=== PATIENT | male | born 1935 | race Caucasian/White ===

== ENCOUNTER 2016-02-27 19:14 | Inpatient (IN) | payer OTHER ==
[~2016-02-27] VITALS: Ht 182.9 cm; Wt 89.8 kg
[~2016-02-27 19:14] MED LIST: ACETAMINOPHEN500 MG PO; ADULT LOW DOSE81 M1 PO; ADVAIR 250/501 DISK IH; ADVAIR HFA120 INHAL1 IH; ADVAIR HFA120 INHALA IH; ALEVE PM CAPLE1 EACH PO; ALEVE220 M2 PO; ALEVE220 MG PO; AMBIEN5 MG PO; ANTI-ITCH28.4 GM TP; ANTIFUNGAL15 G1; ANTIFUNGAL15 G1 TP; ASPERDRINK81 MG PO; ASPIR-LOW81 MG PO; ASPIRIN EC81 M1 PO; ASPIRIN325 MG PO; ASPIRIN81 M2 PO; ATORVASTATIN CA40 MG PO; ATROVENT 00.5 MG/2.5 IH; AUGMENTIN875 MG PO; AVELOX400 MG PO; Advair 250/50 Diskus IH; Aspirin E.C. PO; BENZONATATE100 MG PO; CARDIZEM CD,CA120 MG PO; CARDIZEM CD,CA180 MG PO; CARDIZEM CD120 MG PO; CARDIZEM CD240 MG PO; CARDIZEM120 MG PO; CARDIZEM30 MG PO; CARDIZEM90 MG PO; CARVEDILOL12.5 MG PO; CARVEDILOL25 MG PO; CEPHALEXIN500 MG PO; CIPRO500 MG PO; COLACE100 MG PO; COMBIVENT RESPIM4 GM IH; COMBIVENT200 INHALA IH; COREG25 M1 PO; COUMADIN1 MG PO; COUMADIN5 MG PO; COUMADIN6 MG PO; CRESTOR40 MG PO; Cardizem CD,LA,Cartia,Tiazac,Dilacor,Taztia PO; Coumadin,Jantoven PO; DIGITEK250 MC2 PO; DIGOX125 MCG PO; DIGOXIN125 MCG PO; DIGOXIN250 MCG PO; DILAUDID2 MG PO; DILTIAZEM 24HR360 M1 PO; DOCUSATE SODIU100 MG PO; DOXAZOSIN MESYLA4 MG PO; DOXYCYCLINE HY100 MG PO; DUONEB 2.5-0.5 M3 ML IH; DURAGESIC50 MCG TD; DuoNeb IH; ECOTRIN325 MG PO; ENALAPRIL MALEAT5 MG PO; ENDOCET 5-3251 EACH PO; ERYTHROMYC1 APPLICAT BOTH EYES; Ecotrin PO; FENTANYL1 EAC1 TD; FEOSOL325 MG PO; FERGON324 MG PO; FERROUS GLUCON324 MG PO; FLEXERIL5 MG PO; FUROSEMIDE20 MG PO; FUROSEMIDE40 MG PO; GABAPENTIN100 MG PO; GABAPENTIN300 MG PO; GLIPIZIDE ER2.5 MG PO; GLIPIZIDE XL5 MG PO; GLUCOPHAGE1000 MG PO; GLUCOPHAGE500 MG PO; GLUCOPHAGE850 MG PO; GLUCOTROL XL2.5 MG PO; GLUCOTROL5 MG PO; GUAIFENESI100 MG/5 M PO; Glucophage PO; HIBICLENS118 ML TP; HYDROCHLOROTH12.5 M3; HYDROCHLOROTHIA25 MG PO; HYDROCODON-ACE1 EAC7 PO; HYDRODIURIL,O12.5 M1 PO; Hydrodiuril,Oretic,E PO; IPRATR-ALBUTEROL3 ML IH; IPRATROPIU0.2 MG/1 M IH; IRON325 MG PO; K-DUR20 MEQ PO; KEFLEX500 MG PO; KENALOG,ARISTOC15 G2 TP; KLOR-CON 1010 ME1 PO; KLOR-CON SPRIN10 MEQ PO; LANOXIN250 MCG PO; LASIX20 MG PO; LASIX40 MG PO; LEVAQUIN500 MG PO; LEVAQUIN750 MG PO; LEVOFLOXACIN750 MG PO; LIPITOR40 MG PO; LIPITOR80 MG PO; LISINOPRIL5 MG PO; LITE COAT ASPI325 M1 PO; LO-DOSE ASPIRIN81 M1 PO; LOPRESSOR25 MG PO; LOPRESSOR50 MG PO; LOW DOSE ASPIRI81 M1 PO; Lanoxin,Digitek PO; Lasix PO; Lopressor PO; MELATONIN5 M1 PO; METFORMIN HCL1000 MG PO; METFORMIN HCL500 MG PO; METOPROLOL TART25 MG PO; METOPROLOL TART50 MG; METOPROLOL TART50 MG PO; MICRO-K10 ME2 PO; MIRALAX17 GM PO; MUCUS RELIEF400 MG PO; NABUMETONE500 MG PO; NAPROXEN375 M1 PO; NAPROXEN375 MG PO; NAPROXEN500 M2 PO; NEURONTIN300 MG PO; NITROFURANTOIN100 MG PO; NITROGLYCERIN0.4 MG SL; NITROSTAT0.3 MG SL; NITROSTAT0.4 MG SL; NORCO 5/3251 TABLET PO; NOVOLOG PE100 UNITS/ SC; OMEPRAZOLE20 MG PO; PAIN RELIEF650 MG PO; PANTOPRAZOLE SO40 MG PO; PERCOCET 5/31 TABLET PO; PLAVIX75 MG PO; POTASSIUM CHLO10 ME3 PO; POTASSIUM CHLO20 ME1 PO; PRADAXA150 MG PO; PRAVASTATIN SOD40 MG PO; PREDNISONE10 MG PO; PREDNISONE20 MG PO; PREDNISONE50 MG PO; PRILOSEC20 MG PO; PRINIVIL20 MG PO; PROAIR HFA8.5 GM IH; PROSCAR5 MG PO; PROTONIX40 MG PO; PROVENTIL HFA6.7 GM IH; PROVENTIL,2.5 MG/3 M IH; PROVENTIL2.5 MG/3 M IH; PYRIDIUM100 MG PO; PYRIDIUM200 MG PO; Percocet 5/325,Endoc PO; SENNA8.6 MG PO; SENOKOT S,PE1 TABLET PO; SILVASORB1.5 OZ TP; SPIRIVA1 INHALATI IH; ST. JOSEPH ASPI81 MG PO; SYMBICORT60 INHALAT IH; TIZANIDINE HCL2 MG PO; TRAMADOL HCL50 MG PO; TRAZODONE HCL50 MG PO; TRIAMCINOLONE A15 GM TP; TYLENOL EXTRA500 MG PO; TYLENOL REGULA325 MG PO; ULTRAM50 MG PO; VASOTEC5 MG PO; VENTOLIN HFA18 GM IH; XARELTO10 MG PO; XARELTO15 MG PO; XARELTO20 MG PO; Xarelto PO; ZANAFLEX2 M1 PO; ZESTRIL,PRINIVI20 MG PO; ZESTRIL20 MG PO; ZESTRIL40 MG PO; ZOFRAN4 MG PO; ZOLPIDEM PO; ZOLPIDEM TARTRAT5 MG PO; Zestril,Prinivil PO; [UNRECOGNIZED DRUG - OTHER] TP; no home
[2016-02-27 19:58] LABS: MCHC 29.5 G/DL (30.0-36.0); MCV 95.1 FL (86-99); MEAN PLAT.VOLUME 10.5 uM^3 (9.0-12.4); RBC DIS.WIDTH-CV 15.7 % (11.8-14.6); RBC DIS.WIDTH-SD 52.3 % (39-53)
[2016-02-27 20:01] LABS: PLATELET COUNT 156 K/uL (156-360); WHITE BLOOD COUNT 5.2 K/uL (4.1-10.2)
[2016-02-27 20:05] LABS: CHLORIDE 103 mEq/L (99-109); POTASSIUM 3.7 mEq/L (3.7-5.4); SODIUM 139 mEq/L (136-147)
[2016-02-27 20:07] LABS: GLUCOSE 258 mg/dL (70-99)
[2016-02-27 20:08] LABS: ANION GAP 8 MEQ/L (2-14)
[2016-02-27 20:10] LABS: GFR ESTIMATE (CALCULATED) > 59 mL/min/
[2016-02-27 20:11] LABS: UREA NITROGEN (BUN) 13 mg/dL (9-23)
[2016-02-27 20:17] LABS: TROP-I INTERPRETATION NEGATIVE; TROPONIN-I < 0.01 ng/mL (0.0-0.30)
[2016-02-27 21:13] LABS: ADD MIUA? YES; BILIRUBIN NEGATIVE; BLOOD NEGATIVE; COLOR YELLOW ((YELLOW)); GLUCOSE (STRIP) 500; KETONES NEGATIVE; LEUKOCYTES NEGATIVE; NITRITE NEGATIVE; PROTEIN (STRIP) 100; SPECIFIC GRAVITY 1.024 (1.000-1.030)
[2016-02-27] MEDS ORDERED: FEOSOL325 MG PO (21:17)
[2016-02-27] MEDS ORDERED: XARELTO15 MG PO (21:18)
[2016-02-27] MEDS ORDERED: ALEVE220 M2 PO (21:19)
[2016-02-27] MEDS ORDERED: TESSALON PERLE100 MG PO (21:20)
[2016-02-27] MEDS ORDERED: GLUCOPHAGE500 MG PO (21:21)
[2016-02-27] MEDS ORDERED: LASIX40 MG PO (21:22)
[2016-02-27] MEDS ORDERED: POTASSIUM CHLO10 ME3 PO (21:22)
[2016-02-27] MEDS ORDERED: SPIRIVA1 INHALATI IH (21:22)
[2016-02-27] MEDS ORDERED: SYMBICORT60 INHALAT IH (21:23)
[2016-02-27 22:00] LABS: BACTERIA NONE SEEN; CASTS NONE SEEN /LPF; CRYSTALS NONE SEEN; EPITHELIAL CELLS RARE; MUCUS NONE SEEN; RED BLOOD CELLS RARE /HPF (0-5); UCUL ADDED? NO; WHITE BLOOD CELLS RARE /HPF (0-5)
[2016-02-28 03:30] LABS: TROP-I INTERPRETATION NEGATIVE; TROPONIN-I < 0.01 ng/mL (0.0-0.30)
[2016-02-28 09:08] LABS: HEMATOCRIT 37.1 % (38.0-50.0); MCHC 29.6 G/DL (30.0-36.0); MCV 94.4 FL (86-99); MEAN PLAT.VOLUME 11.3 uM^3 (9.0-12.4); PLATELET COUNT 128 K/uL (156-360); RBC DIS.WIDTH-CV 15.4 % (11.8-14.6); RBC DIS.WIDTH-SD 51.5 % (39-53); RED BLOOD COUNT 3.93 M/uL (4.00-5.50); WHITE BLOOD COUNT 3.3 K/uL (4.1-10.2)
[2016-02-28 09:18] LABS: CHLORIDE 101 mEq/L (99-109)
[2016-02-28 09:19] LABS: POTASSIUM 3.5 mEq/L (3.7-5.4); SODIUM 140 mEq/L (136-147)
[2016-02-28 09:20] LABS: GLUCOSE 321 mg/dL (70-99)
[2016-02-28 09:22] LABS: ANION GAP 10 MEQ/L (2-14)
[2016-02-28 09:24] LABS: GFR ESTIMATE (CALCULATED) > 59 mL/min/
[2016-02-28 09:25] LABS: UREA NITROGEN (BUN) 12 mg/dL (9-23)
[2016-02-28 09:28] LABS: TROP-I INTERPRETATION NEGATIVE; TROPONIN-I < 0.01 ng/mL (0.0-0.30)
[2016-02-28 11:30] VITALS: BP 140/97
[2016-02-28 12:01] LABS: POINT-OF-CARE METER ID UU13113748
[2016-02-28 12:40] LABS: METH RESISTANT S AUREUS PCR POSITIVE (NEGATIVE)
[2016-02-28 12:41] LABS: PROBE CHECK PASS
[2016-02-28 14:00] VITALS: BP 108/66
[2016-02-28 16:00] VITALS: BP 101/52
[2016-02-28 17:18] LABS: POINT-OF-CARE METER ID UU13113748
[2016-02-28 20:00] VITALS: BP 102/49
[2016-02-28 22:44] LABS: POINT-OF-CARE METER ID UU13113748; POINT-OF-CARE USER ID PHATLC
[2016-02-29] VITALS (10 sets, daily range): BP systolic 112–139; BP diastolic 53–97
[2016-02-29 06:57] LABS: ANION GAP 8 MEQ/L (2-14); CHLORIDE 101 MEQ/L (99-109); GFR ESTIMATE (CALCULATED) > 59 mL/min/; GLUCOSE 284 mg/dL (70-99); POTASSIUM 3.8 MEQ/L (3.7-5.4); SAMPLE HEMOLYSIS CHECK 0; SAMPLE ICTERIC CHECK 0; SAMPLE LIPEMIA CHECK 0; SODIUM 139 MEQ/L (136-147); UREA NITROGEN (BUN) 20 mg/dL (9-23)
[2016-02-29 07:05] LABS: MCH 28.4 PG (29.0-34.0); RBC DIS.WIDTH-CV 17.4 % (11.8-14.6); RED BLOOD COUNT 3.73 M/uL (4.00-5.50)
[2016-02-29 07:35] LABS: POINT-OF-CARE METER ID UU14162636
[2016-02-29 07:49] LABS: MCV 94.3 FL (86-99); RBC DIS.WIDTH-SD 53.8 % (39-53)
[2016-02-29 08:03] LABS: MEAN PLAT.VOLUME 11.5 uM^3 (9.0-12.4); PLATELET COUNT 129 K/uL (156-360)
[2016-02-29 12:13] LABS: POINT-OF-CARE METER ID UU14162636; POINT-OF-CARE USER ID 606021424
[2016-02-29 17:06] LABS: POINT-OF-CARE METER ID UU14162636
[2016-02-29 21:22] LABS: POINT-OF-CARE METER ID UU14174225
[2016-03-01 04:00] VITALS: BP 165/85
[2016-03-01 06:59] LABS: HEMATOCRIT 36.2 % (38.0-50.0); MCH 28.2 PG (29.0-34.0); MCHC 29.8 G/DL (30.0-36.0); MCV 94.5 FL (86-99); MEAN PLAT.VOLUME 11.1 uM^3 (9.0-12.4); PLATELET COUNT 120 K/uL (156-360); RBC DIS.WIDTH-CV 15.8 % (11.8-14.6); RBC DIS.WIDTH-SD 54.5 % (39-53); RED BLOOD COUNT 3.83 M/uL (4.00-5.50); WHITE BLOOD COUNT 10.5 K/uL (4.1-10.2)
[2016-03-01 07:29] LABS: ANION GAP 10 MEQ/L (2-14); CHLORIDE 94 MEQ/L (99-109); GFR ESTIMATE (CALCULATED) > 59 mL/min/; SAMPLE HEMOLYSIS CHECK 0; SAMPLE ICTERIC CHECK 0; SAMPLE LIPEMIA CHECK 0; SODIUM 134 MEQ/L (136-147); UREA NITROGEN (BUN) 29 mg/dL (9-23)
[2016-03-01 07:40] VITALS: BP 159/94
[2016-03-01 07:40] LABS: GLUCOSE 418 mg/dL (70-99)
[2016-03-01 10:51] VITALS: BP 183/96
[2016-03-01 15:08] VITALS: BP 145/80
[2016-03-01 19:46] VITALS: BP 151/93
[2016-03-01 21:24] LABS: POINT-OF-CARE METER ID UU14174225
[2016-03-02 00:38] VITALS: BP 126/81
[2016-03-02 04:00] VITALS: BP 140/93
[2016-03-02 08:14] VITALS: BP 152/88
[2016-03-02 08:20] LABS: POINT-OF-CARE METER ID UU14174225
[2016-03-02 12:04] VITALS: BP 150/86
[2016-03-02 12:14] LABS: POINT-OF-CARE METER ID UU14174225
[2016-03-02] MEDS ORDERED: PREDNISONE10 MG PO (14:54)
[2016-03-02] MEDS ORDERED: LEVOFLOXACIN750 MG PO (14:56)
[2016-03-02] MEDS ORDERED: PRAVASTATIN SOD40 MG PO (14:56)
[2016-03-02] MEDS ORDERED: FUROSEMIDE40 MG PO (14:56)
[2016-03-02] MEDS ORDERED: JANUVIA25 M1 PO (14:56)
== END 2016-03-02 15:32 | disposition home or self-care (01) | DRG 189 ==
LOC: EME → EDBD 19:14 → EME 19:14 → EDOF 22:40 → 5SOUTH 22:40 → 4WEST 22:40 → 5SOUTH 02-29 20:46
PROVIDERS: Emergency Medicine; Hospitalist; Internal Medicine; Physician Assistant Medical
DX: J96.21 Acute and chronic respiratory failure with hypoxia (principal); J96.22 Acute and chronic respiratory failure with hypercapnia; I50.23 Acute on chronic systolic (congestive) heart failure; J44.1 Chronic obstructive pulmonary disease with (acute) exacerbation; I47.2 Ventricular tachycardia; E87.6 Hypokalemia; T50.1X5A Adverse effect of loop [high-ceiling] diuretics, initial encounter; Z91.19 Patient's noncompliance with other medical treatment and regimen; Z99.81 Dependence on supplemental oxygen; I48.2 Chronic atrial fibrillation; I25.10 Atherosclerotic heart disease of native coronary artery without angina pectoris; I45.10 Unspecified right bundle-branch block; D64.9 Anemia, unspecified; D69.6 Thrombocytopenia, unspecified; I27.2 Other secondary pulmonary hypertension; I25.5 Ischemic cardiomyopathy; E11.9 Type 2 diabetes mellitus without complications; F43.22 Adjustment disorder with anxiety; Z59.0 Homelessness; I73.9 Peripheral vascular disease, unspecified; F17.210 Nicotine dependence, cigarettes, uncomplicated; E78.5 Hyperlipidemia, unspecified; I25.2 Old myocardial infarction; Z86.73 Personal history of transient ischemic attack (TIA), and cerebral infarction without residual deficits; Z79.01 Long term (current) use of anticoagulants
CPT/HCPCS: 71010; 80048; 81003; 82803; 82948; 83605; 83880; 84484; 85027; 87040; 87086; 87641; 93005; 94640; 94640 76; 94799; 99202; 99281; 99285; J0360; J1100; J1815; J1940; J1956; J2920; J7512; J7644

== ENCOUNTER 2016-04-03 11:29 | Emergency (ER) | payer OTHER ==
[~2016-04-03] VITALS: Ht 195.6 cm; Wt 89.1 kg
[~2016-04-03 11:29] MED LIST changes: +JANUVIA25 M1 PO; +TESSALON PERLE100 MG PO
[2016-04-03] MEDS ORDERED: PANTOPRAZOLE SO40 MG PO (11:46)
[2016-04-03] MEDS ORDERED: FERROUS GLUCON324 MG PO (11:46)
[2016-04-03] MEDS ORDERED: FUROSEMIDE40 MG PO (11:46)
[2016-04-03] MEDS ORDERED: POTASSIUM CHLO10 ME4 PO (11:47)
[2016-04-03] MEDS ORDERED: ENALAPRIL MALEAT5 MG PO (11:47)
[2016-04-03] MEDS ORDERED: CARVEDILOL25 MG PO (11:47)
[2016-04-03] MEDS ORDERED: ADVIL200 MG PO (13:16)
[2016-04-03 14:36] LABS: HEMATOCRIT 37.1 % (38.0-50.0); MCH 27.3 PG (29.0-34.0); MCHC 29.9 G/DL (30.0-36.0); MCV 91.4 FL (86-99); MEAN PLAT.VOLUME 10.1 uM^3 (9.0-12.4); PLATELET COUNT 172 K/uL (156-360); RBC DIS.WIDTH-CV 16.5 % (11.8-14.6); RBC DIS.WIDTH-SD 53.5 % (39-53); RED BLOOD COUNT 4.06 M/uL (4.00-5.50); WHITE BLOOD COUNT 9.4 K/uL (4.1-10.2)
[2016-04-03 14:40] LABS: EOSINOPHIL (%) 2.7 % (0-5); EOSINOPHIL COUNT 0.3 K/uL (0-0.3); IMMATURE GRANULOCYTE (%) 0.3 % (0.0-0.7); IMMATURE GRANULOCYTE COUNT 0.3 K/uL; LYMPHOCYTE COUNT 1.2 K/uL (1.0-2.8); MONOCYTE (%) 6.9 % (3-12); MONOCYTE COUNT 0.7 K/uL (0-0.8); NEUTROPHIL (%) 76.7 % (45-76); NEUTROPHIL COUNT 7.2 K/uL (1.8-6.4)
[2016-04-03 14:47] LABS: CHLORIDE 107 mEq/L (99-109); POTASSIUM 3.7 mEq/L (3.7-5.4); SODIUM 143 mEq/L (136-147)
[2016-04-03 14:49] LABS: ADD MIUA? NO; BILIRUBIN NEGATIVE; BLOOD NEGATIVE; COLOR YELLOW ((YELLOW)); GLUCOSE (STRIP) NEGATIVE; KETONES NEGATIVE; LEUKOCYTES NEGATIVE; NITRITE NEGATIVE; PROTEIN (STRIP) 30; SPECIFIC GRAVITY 1.015 (1.000-1.030); UCUL ADDED? NO
[2016-04-03 14:49] LABS: GLUCOSE 119 mg/dL (70-99)
[2016-04-03 14:51] LABS: ANION GAP 8 MEQ/L (2-14); TOTAL BILIRUBIN 0.6 mg/dL (0.0-1.0)
[2016-04-03 14:53] LABS: ALKALINE PHOSPHATASE 69 IU/L (3-129); GFR ESTIMATE (CALCULATED) > 59 mL/min/
[2016-04-03 14:54] LABS: UREA NITROGEN (BUN) 12 mg/dL (9-23)
[2016-04-03 14:56] LABS: CREATINE KINASE 32 IU/L (1-294); TOTAL CK 32 IU/L (1-294)
[2016-04-03 15:02] LABS: TROP-I INTERPRETATION NEGATIVE; TROPONIN-I < 0.01 ng/mL (0.0-0.30)
[2016-04-03 15:03] LABS: CK-MB 1.5 ng/mL (0.0-4.9)
[2016-04-03 19:55] VITALS: BP 157/113
== END 2016-04-03 19:25 | disposition home or self-care (01) ==
LOC: EME 11:29
PROVIDERS: Emergency Medicine
DX: R53.1 Weakness (principal); R29.6 Repeated falls; I10 Essential (primary) hypertension; E11.9 Type 2 diabetes mellitus without complications; E78.5 Hyperlipidemia, unspecified; Z86.79 Personal history of other diseases of the circulatory system; Z86.73 Personal history of transient ischemic attack (TIA), and cerebral infarction without residual deficits; Z95.5 Presence of coronary angioplasty implant and graft; Z86.711 Personal history of pulmonary embolism; Z96.652 Presence of left artificial knee joint; Z88.2 Allergy status to sulfonamides; Z72.0 Tobacco use
CPT/HCPCS: 70450; 71010; 73521; 80053; 81003; 82550; 82553; 83605; 84484; 85025; 93005; 99281; 99285

== ENCOUNTER 2016-04-09 18:21 | Inpatient (IN) | payer OTHER ==
[~2016-04-09] VITALS: Ht 198.1 cm; Wt 89.0 kg
[~2016-04-09 18:21] MED LIST changes: +ADVIL200 MG PO; +POTASSIUM CHLO10 ME4 PO
[2016-04-09 18:58] LABS: HEMATOCRIT 38.7 % (38.0-50.0); MCH 26.2 PG (29.0-34.0); MCHC 28.7 G/DL (30.0-36.0); MCV 91.3 FL (86-99); MEAN PLAT.VOLUME 10.9 uM^3 (9.0-12.4); PLATELET COUNT 177 K/uL (156-360); RBC DIS.WIDTH-CV 16.8 % (11.8-14.6); RBC DIS.WIDTH-SD 53.9 % (39-53); RED BLOOD COUNT 4.24 M/uL (4.00-5.50); WHITE BLOOD COUNT 8.9 K/uL (4.1-10.2)
[2016-04-09 19:01] LABS: EOSINOPHIL (%) 1.8 % (0-5); EOSINOPHIL COUNT 0.2 K/uL (0-0.3); IMMATURE GRANULOCYTE (%) 0.3 % (0.0-0.7); IMMATURE GRANULOCYTE COUNT 0.3 K/uL; LYMPHOCYTE COUNT 1.1 K/uL (1.0-2.8); MONOCYTE (%) 6.1 % (3-12); MONOCYTE COUNT 0.5 K/uL (0-0.8); NEUTROPHIL (%) 78.5 % (45-76)
[2016-04-09 19:06] LABS: CHLORIDE 106 mEq/L (99-109); POTASSIUM 3.9 mEq/L (3.7-5.4); SODIUM 141 mEq/L (136-147)
[2016-04-09 19:08] LABS: GLUCOSE 158 mg/dL (70-99)
[2016-04-09 19:09] LABS: ANION GAP 8 MEQ/L (2-14)
[2016-04-09 19:12] LABS: GFR ESTIMATE (CALCULATED) > 59 mL/min/
[2016-04-09 19:13] LABS: UREA NITROGEN (BUN) 16 mg/dL (9-23)
[2016-04-09 19:18] LABS: TROP-I INTERPRETATION INDETERMINATE; TROPONIN-I 0.58 ng/mL (0.0-0.30)
[2016-04-09] MEDS ORDERED: NITROSTAT0.4 MG SL (19:55)
[2016-04-09] MEDS ORDERED: K-TAB10 MEQ PO (19:57)
[2016-04-09 20:07] LABS: ADD MIUA? YES; BILIRUBIN NEGATIVE; BLOOD NEGATIVE; COLOR YELLOW ((YELLOW)); GLUCOSE (STRIP) NEGATIVE; KETONES NEGATIVE; LEUKOCYTES NEGATIVE; NITRITE NEGATIVE; PROTEIN (STRIP) >=500
[2016-04-09 20:13] LABS: BACTERIA NONE SEEN /HPF; EPITHELIAL CELLS NONE SEEN /HPF; HYALINE CASTS 0-5 /LPF; MUCUS TRACE /LPF; RED BLOOD CELLS 0-5 /HPF (0-5); UCUL ADDED? NO; UNCLASSIFIED CASTS 0-5 /LPF; WHITE BLOOD CELLS 0-5 /HPF (0-5)
[2016-04-09 22:56] VITALS: BP 160/104
[2016-04-09 23:12] VITALS: BP 147/103
[2016-04-09 23:42] VITALS: BP 150/100
[2016-04-10] VITALS (13 sets, daily range): BP systolic 100–153; BP diastolic 59–98
[2016-04-10] MEDS ORDERED: PROVENTIL HFA6.7 GM IH (01:31)
[2016-04-10 02:45] LABS: TROP-I INTERPRETATION INDETERMINATE; TROPONIN-I 0.45 ng/mL (0.0-0.30)
[2016-04-10 07:02] LABS: HEMATOCRIT 33.9 % (38.0-50.0); MCH 27.1 PG (29.0-34.0); MCHC 30.1 G/DL (30.0-36.0); MCV 90.2 FL (86-99); MEAN PLAT.VOLUME 11.4 uM^3 (9.0-12.4); PLATELET COUNT 162 K/uL (156-360); RBC DIS.WIDTH-CV 16.8 % (11.8-14.6); RBC DIS.WIDTH-SD 54.9 % (39-53); RED BLOOD COUNT 3.76 M/uL (4.00-5.50); WHITE BLOOD COUNT 7.4 K/uL (4.1-10.2)
[2016-04-10 07:33] LABS: TROP-I INTERPRETATION INDETERMINATE; TROPONIN-I 0.37 ng/mL (0.0-0.30)
[2016-04-10 07:35] LABS: ANION GAP 8 MEQ/L (2-14); CHLORIDE 99 MEQ/L (99-109); GFR ESTIMATE (CALCULATED) > 59 mL/min/; GLUCOSE 222 mg/dL (70-99); POTASSIUM 3.3 MEQ/L (3.7-5.4); SAMPLE HEMOLYSIS CHECK 0; SAMPLE ICTERIC CHECK 0; SAMPLE LIPEMIA CHECK 0; SODIUM 136 MEQ/L (136-147); UREA NITROGEN (BUN) 12 mg/dL (9-23)
[2016-04-10 16:10] LABS: POINT-OF-CARE METER ID UU13113781
[2016-04-11 04:00] VITALS: BP 125/74
[2016-04-11 07:24] LABS: ANION GAP 7 MEQ/L (2-14); CHLORIDE 101 MEQ/L (99-109); GFR ESTIMATE (CALCULATED) > 59 mL/min/; GLUCOSE 201 mg/dL (70-99); POTASSIUM 3.5 MEQ/L (3.7-5.4); SAMPLE HEMOLYSIS CHECK 0; SAMPLE ICTERIC CHECK 0; SAMPLE LIPEMIA CHECK 0; SODIUM 141 MEQ/L (136-147)
[2016-04-11 07:25] LABS: UREA NITROGEN (BUN) 29 mg/dL (9-23)
[2016-04-11 07:59] LABS: POINT-OF-CARE METER ID UU13113698; POINT-OF-CARE USER ID ENVKC36
[2016-04-11 08:30] VITALS: BP 132/73
[2016-04-11 11:19] LABS: POINT-OF-CARE METER ID UU13113698; POINT-OF-CARE USER ID ENVKC36
[2016-04-11 12:35] VITALS: BP 106/66
[2016-04-11 16:00] VITALS: BP 100/69
[2016-04-11 16:42] LABS: POINT-OF-CARE USER ID ENVKC36
[2016-04-11 20:50] VITALS: BP 123/69
[2016-04-11 20:50] LABS: POINT-OF-CARE METER ID UU14174216
[2016-04-12] VITALS (7 sets, daily range): BP systolic 83–137; BP diastolic 53–77
[2016-04-12 07:52] LABS: POINT-OF-CARE METER ID UU13113698
[2016-04-12 10:27] LABS: ANION GAP 3 MEQ/L (2-14); CHLORIDE 101 MEQ/L (99-109); GFR ESTIMATE (CALCULATED) > 59 mL/min/; GLUCOSE 219 mg/dL (70-99); POTASSIUM 4.2 MEQ/L (3.7-5.4); SAMPLE HEMOLYSIS CHECK 0; SAMPLE ICTERIC CHECK 0; SAMPLE LIPEMIA CHECK 0; SODIUM 140 MEQ/L (136-147); UREA NITROGEN (BUN) 27 mg/dL (9-23)
[2016-04-12 12:18] LABS: POINT-OF-CARE METER ID UU14174216
[2016-04-12 16:16] LABS: POINT-OF-CARE METER ID UU14174216
[2016-04-12 20:45] LABS: POINT-OF-CARE METER ID UU14174216
[2016-04-13 03:43] VITALS: BP 141/80
[2016-04-13 06:55] VITALS: BP 145/75
[2016-04-13 07:32] LABS: ANION GAP 4 MEQ/L (2-14); CHLORIDE 99 MEQ/L (99-109); GFR ESTIMATE (CALCULATED) > 59 mL/min/; GLUCOSE 171 mg/dL (70-99); POTASSIUM 4.4 MEQ/L (3.7-5.4); SAMPLE HEMOLYSIS CHECK 0; SAMPLE ICTERIC CHECK 0; SAMPLE LIPEMIA CHECK 0; SODIUM 137 MEQ/L (136-147); UREA NITROGEN (BUN) 24 mg/dL (9-23)
[2016-04-13 07:55] LABS: POINT-OF-CARE METER ID UU13113698
[2016-04-13] MEDS ORDERED: XARELTO20 MG PO ×2 (10:11→13:05)
[2016-04-13] MEDS ORDERED: ATORVASTATIN CA40 MG PO (13:05)
[2016-04-13] MEDS ORDERED: ENALAPRIL MALEAT5 MG PO (13:05)
[2016-04-13] MEDS ORDERED: FERROUS GLUCON324 MG PO (13:05)
[2016-04-13] MEDS ORDERED: PROVENTIL HFA6.7 GM IH (13:05)
[2016-04-13] MEDS ORDERED: CARDIZEM CD120 MG PO (13:05)
[2016-04-13] MEDS ORDERED: K-TAB10 MEQ PO (13:05)
[2016-04-13] MEDS ORDERED: PANTOPRAZOLE SO40 MG PO (13:05)
[2016-04-13] MEDS ORDERED: NITROSTAT0.4 MG SL (13:05)
[2016-04-13] MEDS ORDERED: FUROSEMIDE20 MG PO (13:05)
[2016-04-13] MEDS ORDERED: ST. JOSEPH ASPI81 MG PO (13:05)
[2016-04-13] MEDS ORDERED: GLUCOPHAGE500 MG PO (13:05)
[2016-04-13] MEDS ORDERED: ADVAIR HFA120 INHALA IH (13:05)
[2016-04-13] MEDS ORDERED: CARVEDILOL12.5 MG PO (13:05)
[2016-04-13 14:21] LABS: Estimated Average Glucose 174 mg/dL (70-123)
[2016-04-13 16:39] LABS: HEMOGLOBIN A1c (GLYCOHEMOGLOB) 7.7 % HGB (Below 5.7)
== END 2016-04-13 16:25 | disposition home or self-care (01) | DRG 264 ==
LOC: EME 18:21 → EDOF 21:42 → 4EAST 21:42
PROVIDERS: Emergency Medicine; Hospitalist; Internal Medicine; Internal Medicine Cardiovascular Disease
PROC: 0HBKXZZ Excision of Right Lower Leg Skin, External Approach (ICD-10-PCS; principal; 2016-04-10)
PROC: 0HBLXZZ Excision of Left Lower Leg Skin, External Approach (ICD-10-PCS; principal; 2016-04-10)
DX: I50.23 Acute on chronic systolic (congestive) heart failure (principal); J44.0 Chronic obstructive pulmonary disease with (acute) lower respiratory infection; J18.9 Pneumonia, unspecified organism; J44.1 Chronic obstructive pulmonary disease with (acute) exacerbation; I48.1 Persistent atrial fibrillation; L97.821 Non-pressure chronic ulcer of other part of left lower leg limited to breakdown of skin; L97.819 Non-pressure chronic ulcer of other part of right lower leg with unspecified severity; I47.2 Ventricular tachycardia; I73.9 Peripheral vascular disease, unspecified; I87.2 Venous insufficiency (chronic) (peripheral); I10 Essential (primary) hypertension; E87.6 Hypokalemia; I25.5 Ischemic cardiomyopathy; I25.10 Atherosclerotic heart disease of native coronary artery without angina pectoris; E11.42 Type 2 diabetes mellitus with diabetic polyneuropathy; E11.65 Type 2 diabetes mellitus with hyperglycemia; D64.9 Anemia, unspecified; D69.6 Thrombocytopenia, unspecified; E78.5 Hyperlipidemia, unspecified; E11.51 Type 2 diabetes mellitus with diabetic peripheral angiopathy without gangrene; I25.2 Old myocardial infarction; K21.9 Gastro-esophageal reflux disease without esophagitis; F32.9 Major depressive disorder, single episode, unspecified; F43.22 Adjustment disorder with anxiety; M16.11 Unilateral primary osteoarthritis, right hip; F17.210 Nicotine dependence, cigarettes, uncomplicated; Z59.0 Homelessness; Z86.73 Personal history of transient ischemic attack (TIA), and cerebral infarction without residual deficits; Z79.01 Long term (current) use of anticoagulants; Z96.642 Presence of left artificial hip joint; Z91.19 Patient's noncompliance with other medical treatment and regimen; Z95.1 Presence of aortocoronary bypass graft; Z95.5 Presence of coronary angioplasty implant and graft
CPT/HCPCS: 71020; 80048; 81003; 82948; 83036; 83605; 83880; 84443; 84484; 85025; 85027; 87040; 87086; 93005; 93925; 94640; 94640 76; 94799; 99202; 99281; 99285; J0456; J0696; J1815; J1940; J1956; J2930; J7030; J7050

== ENCOUNTER 2016-04-23 18:15 | Emergency (ER) | payer OTHER ==
[~2016-04-23] VITALS: Ht 199.4 cm; Wt 89.2 kg
[~2016-04-23 18:15] MED LIST changes: +K-TAB10 MEQ PO
[2016-04-23 19:25] LABS: HEMATOCRIT 37.6 % (38.0-50.0); MCH 26.9 PG (29.0-34.0); MCHC 29.5 G/DL (30.0-36.0); MCV 91.3 FL (86-99); MEAN PLAT.VOLUME 10.5 uM^3 (9.0-12.4); PLATELET COUNT 186 K/uL (156-360); RBC DIS.WIDTH-CV 18.4 % (11.8-14.6); RBC DIS.WIDTH-SD 58.2 % (39-53); RED BLOOD COUNT 4.12 M/uL (4.00-5.50); WHITE BLOOD COUNT 9.1 K/uL (4.1-10.2)
[2016-04-23 19:28] LABS: EOSINOPHIL (%) 3.5 % (0-5); EOSINOPHIL COUNT 0.3 K/uL (0-0.3); IMMATURE GRANULOCYTE (%) 0.2 % (0.0-0.7); IMMATURE GRANULOCYTE COUNT 0.2 K/uL; LYMPHOCYTE COUNT 1.8 K/uL (1.0-2.8); MONOCYTE (%) 7.3 % (3-12); MONOCYTE COUNT 0.7 K/uL (0-0.8); NEUTROPHIL (%) 69.4 % (45-76); NEUTROPHIL COUNT 6.3 K/uL (1.8-6.4)
[2016-04-23 19:39] LABS: CHLORIDE 104 mEq/L (99-109); POTASSIUM 3.6 mEq/L (3.7-5.4); SODIUM 141 mEq/L (136-147)
[2016-04-23 19:41] LABS: GLUCOSE 110 mg/dL (70-99)
[2016-04-23 19:43] LABS: ANION GAP 9 MEQ/L (2-14)
[2016-04-23 19:45] LABS: GFR ESTIMATE (CALCULATED) > 59 mL/min/
[2016-04-23 19:46] LABS: UREA NITROGEN (BUN) 17 mg/dL (9-23)
[2016-04-23] MEDS ORDERED: PREDNISONE50 MG PO (20:51)
[2016-04-23] MEDS ORDERED: LEVAQUIN500 MG PO (20:51)
[2016-04-23 21:39] VITALS: BP 143/90
== END 2016-04-23 21:42 | disposition home or self-care (01) ==
LOC: EME 18:15
PROVIDERS: Emergency Medicine
DX: R21 Rash and other nonspecific skin eruption (principal); J40 Bronchitis, not specified as acute or chronic; J44.9 Chronic obstructive pulmonary disease, unspecified; L29.9 Pruritus, unspecified; R20.8 Other disturbances of skin sensation; E11.9 Type 2 diabetes mellitus without complications; Z86.711 Personal history of pulmonary embolism; Z95.5 Presence of coronary angioplasty implant and graft; F17.200 Nicotine dependence, unspecified, uncomplicated
CPT/HCPCS: 71010; 80048; 85025; 94640; 99281; 99285; J1200; J2930

== ENCOUNTER 2016-04-29 22:25 | Inpatient (IN) | payer OTHER ==
[~2016-04-29] VITALS: Ht 188 cm; Wt 95.0 kg
[2016-04-29 22:58] LABS: MCH 26.6 PG (29.0-34.0); MCHC 29.1 G/DL (30.0-36.0); MCV 91.1 FL (86-99); RBC DIS.WIDTH-CV 17.6 % (11.8-14.6); RBC DIS.WIDTH-SD 57.2 % (39-53); RED BLOOD COUNT 3.84 M/uL (4.00-5.50)
[2016-04-29 22:59] LABS: WHITE BLOOD COUNT 6.1 K/uL (4.1-10.2)
[2016-04-29 23:05] LABS: CHLORIDE 104 mEq/L (99-109); POTASSIUM 3.6 mEq/L (3.7-5.4); SODIUM 139 mEq/L (136-147)
[2016-04-29 23:07] LABS: INTER. NORMALIZED RATIO 1.7; PROTHROMBIN TIME 17.4 (9.2-11.2); PTT 36.4 (25-32)
[2016-04-29 23:08] LABS: ANION GAP 10 MEQ/L (2-14)
[2016-04-29 23:10] LABS: GFR ESTIMATE (CALCULATED) 57 mL/min/
[2016-04-29 23:11] LABS: UREA NITROGEN (BUN) 17 mg/dL (9-23)
[2016-04-29 23:19] LABS: TROP-I INTERPRETATION NEGATIVE; TROPONIN-I 0.02 ng/mL (0.0-0.30)
[2016-04-29 23:29] LABS: GLUCOSE 468 mg/dL (70-99)
[2016-04-29 23:48] LABS: INFLUENZA A VIRAL ANTIGEN NEGATIVE; INFLUENZA B VIRAL ANTIGEN NEGATIVE
[2016-04-30] MEDS ORDERED: FUROSEMIDE40 MG PO (00:17)
[2016-04-30] MEDS ORDERED: TYLENOL REGULA325 MG PO (00:19)
[2016-04-30] MEDS ORDERED: DUONEB 2.5-0.5 M3 ML AEROSOL (00:19)
[2016-04-30] MEDS ORDERED: PREDNISONE50 MG PO (00:21)
[2016-04-30 00:43] LABS: PLATELET COUNT UNABLE TO REPORT K/uL (156-360)
[2016-04-30 00:50] LABS: POINT-OF-CARE METER ID UU13113702; POINT-OF-CARE USER ID HMLKAV
[2016-04-30 01:49] LABS: CHLORIDE 105 mEq/L (99-109); POTASSIUM 3.5 mEq/L (3.7-5.4); SODIUM 138 mEq/L (136-147)
[2016-04-30 01:53] LABS: ANION GAP 7 MEQ/L (2-14)
[2016-04-30 01:54] LABS: TOTAL BILIRUBIN 0.6 mg/dL (0.0-1.0)
[2016-04-30 01:55] LABS: ALKALINE PHOSPHATASE 71 IU/L (3-129); GFR ESTIMATE (CALCULATED) > 59 mL/min/
[2016-04-30 01:56] LABS: UREA NITROGEN (BUN) 15 mg/dL (9-23)
[2016-04-30 02:01] LABS: GLUCOSE 474 mg/dL (70-99)
[2016-04-30 07:09] LABS: POINT-OF-CARE METER ID UU14100415
[2016-04-30 11:19] LABS: POINT-OF-CARE METER ID UU14100415
[2016-04-30 16:32] VITALS: BP 104/68
== END 2016-04-30 17:09 | DRG 871 ==
LOC: EME 22:25 → EDOF 04-30 00:49 → 5EAST 04-30 00:49
PROVIDERS: Emergency Medicine; Hospitalist; Internal Medicine
DX: A41.9 Sepsis, unspecified organism (principal); J18.9 Pneumonia, unspecified organism; J44.1 Chronic obstructive pulmonary disease with (acute) exacerbation; I50.22 Chronic systolic (congestive) heart failure; E11.65 Type 2 diabetes mellitus with hyperglycemia; I83.225 Varicose veins of left lower extremity with both ulcer other part of foot and inflammation; L97.529 Non-pressure chronic ulcer of other part of left foot with unspecified severity; I48.91 Unspecified atrial fibrillation; I25.10 Atherosclerotic heart disease of native coronary artery without angina pectoris; Y95 Nosocomial condition; I25.2 Old myocardial infarction; Z95.1 Presence of aortocoronary bypass graft; I73.9 Peripheral vascular disease, unspecified; F41.9 Anxiety disorder, unspecified; Z86.711 Personal history of pulmonary embolism; E66.9 Obesity, unspecified; Z95.5 Presence of coronary angioplasty implant and graft; D64.9 Anemia, unspecified; E78.5 Hyperlipidemia, unspecified
CPT/HCPCS: 71010; 80048; 80053; 82948; 83605; 83880; 84484; 85027; 85049; 85610; 85730; 87040; 87070; 87205; 87449; 87502; 93005; 94640; 94640 76; 94799; 99202; C9113; J0456; J0692; J0696; J1815; J2930; J3370; J7030; J7050

== ENCOUNTER 2016-04-30 17:09 | Inpatient (IN) | payer OTHER ==
[~2016-04-30] VITALS: Ht 188 cm; Wt 95.0 kg
[~2016-04-30 17:09] MED LIST changes: +DUONEB 2.5-0.5 M3 ML AEROSOL
[2016-04-30 23:33] VITALS: BP 137/85
[2016-05-01 03:30] LABS: POINT-OF-CARE METER ID UU13113725
[2016-05-01 06:13] LABS: POINT-OF-CARE METER ID UU13113725
[2016-05-01 08:00] VITALS: BP 148/100
[2016-05-01 11:26] LABS: POINT-OF-CARE METER ID UU13113725
[2016-05-01 15:41] VITALS: BP 141/96
[2016-05-01 23:06] VITALS: BP 151/92
[2016-05-02 09:44] LABS: Estimated Average Glucose 194 mg/dL (70-123); HEMOGLOBIN A1c (GLYCOHEMOGLOB) 8.4 % HGB (Below 5.7)
[2016-05-02 11:50] VITALS: BP 124/94
[2016-05-02 23:35] VITALS: BP 167/83
[2016-05-03 08:10] VITALS: BP 160/72
[2016-05-03] MEDS ORDERED: PREDNISONE20 MG PO (08:56)
[2016-05-03] MEDS ORDERED: JANUVIA25 M1 PO (08:56)
[2016-05-03] MEDS ORDERED: LEVAQUIN500 MG PO (08:56)
[2016-05-03] MEDS ORDERED: AUGMENTIN875 MG PO (08:56)
[2016-05-03 14:11] LABS: GLUCOSE 451 mg/dL (70-99)
[2016-05-03 15:21] VITALS: BP 107/55
[2016-05-03 16:36] LABS: GFR ESTIMATE (CALCULATED) > 59 mL/min/
[2016-05-03 16:37] LABS: VANCOMYCIN, TROUGH 17.9 MCG/ML (10-20)
[2016-05-03 21:01] LABS: ANION GAP 11 MEQ/L (2-14); CHLORIDE 96 MEQ/L (99-109); GLUCOSE 393 mg/dL (70-99); POTASSIUM 3.7 MEQ/L (3.7-5.4); SODIUM 134 MEQ/L (136-147)
[2016-05-03 21:02] LABS: UREA NITROGEN (BUN) 34 mg/dL (9-23)
[2016-05-03 22:35] VITALS: BP 152/93
[2016-05-04 07:26] VITALS: BP 150/95
[2016-05-04 12:57] LABS: POINT-OF-CARE METER ID UU13113725
[2016-05-04] MEDS ORDERED: METFORMIN HCL1000 MG PO (13:38)
[2016-05-04 16:52] VITALS: BP 136/81
== END 2016-05-04 17:04 | disposition hospice, home (50) | DRG 189 ==
LOC: 5EAST 17:09
PROVIDERS: Hospitalist; Internal Medicine
DX: J96.01 Acute respiratory failure with hypoxia (principal); Z66 Do not resuscitate; Z51.5 Encounter for palliative care; J44.0 Chronic obstructive pulmonary disease with (acute) lower respiratory infection; J18.9 Pneumonia, unspecified organism; Y95 Nosocomial condition; J44.1 Chronic obstructive pulmonary disease with (acute) exacerbation; I42.9 Cardiomyopathy, unspecified; I50.22 Chronic systolic (congestive) heart failure; E11.65 Type 2 diabetes mellitus with hyperglycemia; I10 Essential (primary) hypertension; I48.2 Chronic atrial fibrillation; E78.5 Hyperlipidemia, unspecified; I25.10 Atherosclerotic heart disease of native coronary artery without angina pectoris; I83.208 Varicose veins of unspecified lower extremity with both ulcer of other part of lower extremity and inflammation; L97.809 Non-pressure chronic ulcer of other part of unspecified lower leg with unspecified severity; I25.2 Old myocardial infarction; Z95.1 Presence of aortocoronary bypass graft; Z95.5 Presence of coronary angioplasty implant and graft; D64.9 Anemia, unspecified; D69.6 Thrombocytopenia, unspecified; F41.9 Anxiety disorder, unspecified; I73.9 Peripheral vascular disease, unspecified; E87.6 Hypokalemia; K21.9 Gastro-esophageal reflux disease without esophagitis; Z86.73 Personal history of transient ischemic attack (TIA), and cerebral infarction without residual deficits; Z86.711 Personal history of pulmonary embolism
CPT/HCPCS: 80048; 80048 91; 80202; 81003; 82565; 82947; 82948; 83036; 87040; 87070; 87205; 94640; 94640 76; 94799; 99202; J0456; J0692; J1815; J2920; J2930; J3370; J7030; J7040; J7050; J7512

== ENCOUNTER 2016-05-13 03:29 | Emergency (ER) | payer OTHER ==
[~2016-05-13] VITALS: Ht 182.9 cm; Wt 93.3 kg
[2016-05-13 04:11] LABS: HEMATOCRIT 30.3 % (38.0-50.0); MCHC 31.7 G/DL (30.0-36.0); MEAN PLAT.VOLUME 11.5 uM^3 (9.0-12.4); PLATELET COUNT 100 K/uL (156-360); RBC DIS.WIDTH-CV 22.7 % (11.8-14.6); RBC DIS.WIDTH-SD 60.4 % (39-53)
[2016-05-13 04:13] LABS: WHITE BLOOD COUNT 9.8 K/uL (4.1-10.2)
[2016-05-13 04:14] LABS: CHLORIDE 104 mEq/L (99-109); POTASSIUM 3.6 mEq/L (3.7-5.4); SODIUM 141 mEq/L (136-147)
[2016-05-13 04:15] LABS: GLUCOSE 295 mg/dL (70-99); INTER. NORMALIZED RATIO 1.7; PROTHROMBIN TIME 17.4 (9.2-11.2); PTT 38.6 (25-32)
[2016-05-13 04:17] LABS: ANION GAP 7 MEQ/L (2-14)
[2016-05-13 04:19] LABS: GFR ESTIMATE (CALCULATED) > 59 mL/min/
[2016-05-13 04:20] LABS: UREA NITROGEN (BUN) 17 mg/dL (9-23)
[2016-05-13 05:36] VITALS: BP 161/89
== END 2016-05-13 06:00 | disposition home or self-care (01) ==
LOC: EME → EDBD 03:29 → EME 03:29
PROVIDERS: Emergency Medicine
DX: R60.0 Localized edema (principal); I50.9 Heart failure, unspecified; G89.29 Other chronic pain; J44.9 Chronic obstructive pulmonary disease, unspecified; Z86.711 Personal history of pulmonary embolism; Z79.01 Long term (current) use of anticoagulants; Z72.0 Tobacco use
CPT/HCPCS: 80048; 83880; 85027; 85610; 85730; 93970; 99281; 99284

== ENCOUNTER 2016-06-08 11:49 | Inpatient (IN) | payer OTHER ==
[~2016-06-08] VITALS: Ht 198.1 cm; Wt 95.5 kg
[2016-06-08 12:51] LABS: CHLORIDE 106 mEq/L (99-109); SODIUM 142 mEq/L (136-147)
[2016-06-08 12:53] LABS: GLUCOSE 103 mg/dL (70-99)
[2016-06-08 12:54] LABS: ANION GAP 9 MEQ/L (2-14)
[2016-06-08 12:57] LABS: GFR ESTIMATE (CALCULATED) > 59 mL/min/; UREA NITROGEN (BUN) 15 mg/dL (9-23)
[2016-06-08 13:03] LABS: EOSINOPHIL (%) 1.7 % (0-5); EOSINOPHIL COUNT 0.1 K/uL (0-0.3); HEMATOCRIT 26.8 % (38.0-50.0); IMMATURE GRANULOCYTE (%) 0.4 % (0.0-0.7); INSTRUMENT ABS NEUTROPHIL CT 3.8 K/uL; LYMPHOCYTE COUNT 0.9 K/uL (1.0-2.8); MCH 34.8 PG (29.0-34.0); MCHC 31.7 G/DL (30.0-36.0); MEAN PLAT.VOLUME 12.1 uM^3 (9.0-12.4); MONOCYTE (%) 7.5 % (3-12); MONOCYTE COUNT 0.4 K/uL (0-0.8); NEUTROPHIL (%) 71.8 % (45-76); NEUTROPHIL COUNT 3.8 K/uL (1.8-6.4); PLATELET COUNT 113 K/uL (156-360); RBC DIS.WIDTH-CV 25.3 % (11.8-14.6); RBC DIS.WIDTH-SD 68.9 % (39-53); RED BLOOD COUNT 2.44 M/uL (4.00-5.50); TROP-I INTERPRETATION NEGATIVE; TROPONIN-I < 0.01 ng/mL (0.0-0.30)
[2016-06-08 13:06] LABS: MCV 109.8 FL (86-99); WHITE BLOOD COUNT 5.2 K/uL (4.1-10.2)
[2016-06-08] MEDS ORDERED: DELTASONE20 M1 PO (16:36)
[2016-06-08] MEDS ORDERED: JANUVIA25 M1 PO (16:36)
[2016-06-08] MEDS ORDERED: CARTIA XT120 MG PO (16:39)
[2016-06-08] MEDS ORDERED: PROAIR HFA8.5 GM IH (16:40)
[2016-06-08] MEDS ORDERED: HUMALOG100 UNIT/1 SC (16:43)
[2016-06-08] MEDS ORDERED: REFRESH TEARS15 ML BOTH EYES (16:45)
[2016-06-08] MEDS ORDERED: SPIRIVA RESPIMAT4 GM IH (16:45)
[2016-06-08] MEDS ORDERED: COMBIVENT RESPIM4 GM IH (16:46)
[2016-06-08 22:11] VITALS: BP 171/81
[2016-06-08 22:31] LABS: IRON 34 MCG/DL (35-150)
[2016-06-09 02:55] VITALS: BP 134/62
[2016-06-09 06:40] LABS: ANION GAP 8 MEQ/L (2-14); CHLORIDE 102 MEQ/L (99-109); GFR ESTIMATE (CALCULATED) > 59 mL/min/; GLUCOSE 258 mg/dL (70-99); POTASSIUM 3.8 MEQ/L (3.7-5.4); SAMPLE HEMOLYSIS CHECK 0; SAMPLE ICTERIC CHECK 0; SAMPLE LIPEMIA CHECK 0; SODIUM 138 MEQ/L (136-147); UREA NITROGEN (BUN) 14 mg/dL (9-23)
[2016-06-09 06:43] LABS: MCH 42.7 PG (29.0-34.0); MCHC 37.3 G/DL (30.0-36.0); MCV 114.6 FL (86-99); MEAN PLAT.VOLUME 12.5 uM^3 (9.0-12.4); RED BLOOD COUNT 1.92 M/uL (4.00-5.50); WHITE BLOOD COUNT 6.2 K/uL (4.1-10.2)
[2016-06-09 07:39] VITALS: BP 138/84
[2016-06-09 07:40] LABS: PLATELET COUNT ND K/uL (156-360)
[2016-06-09 07:42] LABS: FERRITIN 55 NG/ML (22-322)
[2016-06-09 08:07] LABS: IMM.RETIC FRACTION 33.6 % (3-19); RETIC HGB EQUIVALENT 24.2 (28-36); RETICULOCYTE COUNT 4.1 % (0.5-1.8)
[2016-06-09 08:11] LABS: LACTATE DEHYDROGENASE 189 IU/L (20-246)
[2016-06-09 10:58] LABS: BASE EXCESS 4.3 mEq/L (-3 to +3); BICARBONATE 30.5 mEq/L (22-26); COMMENTS - BLOOD GASES A+C+; METHEMOGLOBIN 1.2 % (0-1.5); PCO2 54 mm Hg (35-45); PO2 90 mm Hg (80-100); SITE RR; pH 7.36 (7.35-7.45)
[2016-06-09 10:59] LABS: DEVICE NC; O2 FLOW 3 L/MIN; TOTAL RESP RATE 18 resp/min
[2016-06-09 15:35] VITALS: BP 128/66
[2016-06-09 15:57] VITALS: BP 124/76
[2016-06-09 16:36] LABS: POINT-OF-CARE METER ID UU13113725
[2016-06-09 19:35] VITALS: BP 111/63
[2016-06-09 21:29] LABS: POINT-OF-CARE METER ID UU13113725
[2016-06-09 22:31] VITALS: BP 116/63
[2016-06-10 03:20] VITALS: BP 107/66
[2016-06-10 05:54] LABS: POINT-OF-CARE METER ID UU13113725
[2016-06-10 07:15] LABS: EOSINOPHIL (%) 0 % (0-5); IMMATURE GRANULOCYTE (%) 0.8 % (0.0-0.7); IMMATURE GRANULOCYTE COUNT 0.1 K/uL; INSTRUMENT ABS NEUTROPHIL CT 12.3 K/uL; LYMPHOCYTE COUNT 0.5 K/uL (1.0-2.8); MCH 39.4 PG (29.0-34.0); MCHC 35.7 G/DL (30.0-36.0); MEAN PLAT.VOLUME 11.9 uM^3 (9.0-12.4); MONOCYTE COUNT 0.3 K/uL (0-0.8); NEUTROPHIL (%) 93.5 % (45-76); NEUTROPHIL COUNT 12.3 K/uL (1.8-6.4); PLATELET COUNT 105 K/uL (156-360); RBC DIS.WIDTH-CV 27.6 % (11.8-14.6); RBC DIS.WIDTH-SD 64.4 % (39-53); RED BLOOD COUNT 2.08 M/uL (4.00-5.50)
[2016-06-10 07:18] LABS: MCV 110.6 FL (86-99); WHITE BLOOD COUNT 13.1 K/uL (4.1-10.2)
[2016-06-10 07:20] LABS: ANION GAP 9 MEQ/L (2-14); CHLORIDE 101 MEQ/L (99-109); GFR ESTIMATE (CALCULATED) > 59 mL/min/; GLUCOSE 304 mg/dL (70-99); MAGNESIUM 1.6 mg/dl (1.3-2.7); POTASSIUM 4.1 MEQ/L (3.7-5.4); SAMPLE HEMOLYSIS CHECK 0; SAMPLE ICTERIC CHECK 0; SAMPLE LIPEMIA CHECK 0; SODIUM 139 MEQ/L (136-147); UREA NITROGEN (BUN) 28 mg/dL (9-23)
[2016-06-10 07:24] VITALS: BP 136/72
[2016-06-10 07:33] LABS: ANISOCYTOSIS 1+; MACROCYTES 1+
[2016-06-10 10:37] VITALS: BP 129/79
[2016-06-10 11:21] LABS: POINT-OF-CARE METER ID UU13113725
[2016-06-10 16:53] LABS: ANION GAP 7 MEQ/L (2-14); CHLORIDE 100 MEQ/L (99-109); POTASSIUM 4.3 MEQ/L (3.7-5.4); SAMPLE HEMOLYSIS CHECK 0; SAMPLE ICTERIC CHECK 0; SAMPLE LIPEMIA CHECK 0; SODIUM 135 MEQ/L (136-147)
[2016-06-10 16:55] VITALS: BP 109/78
[2016-06-10 16:59] LABS: GFR ESTIMATE (CALCULATED) > 59 mL/min/; UREA NITROGEN (BUN) 30 mg/dL (9-23)
[2016-06-10 17:00] LABS: GLUCOSE 404 mg/dL (70-99)
[2016-06-10 19:04] VITALS: BP 110/73
[2016-06-10 22:45] VITALS: BP 110/67
[2016-06-11 02:57] VITALS: BP 103/68
[2016-06-11 06:42] LABS: ANION GAP 6 MEQ/L (2-14); CHLORIDE 96 MEQ/L (99-109); GFR ESTIMATE (CALCULATED) > 59 mL/min/; GLUCOSE 288 mg/dL (70-99); POTASSIUM 4.3 MEQ/L (3.7-5.4); SAMPLE HEMOLYSIS CHECK 0; SAMPLE ICTERIC CHECK 0; SAMPLE LIPEMIA CHECK 0; SODIUM 132 MEQ/L (136-147); UREA NITROGEN (BUN) 35 mg/dL (9-23)
[2016-06-11 06:44] LABS: MAGNESIUM 1.9 mg/dl (1.3-2.7)
[2016-06-11 06:51] LABS: HEMATOCRIT 23.7 % (38.0-50.0); MCH 40.1 PG (29.0-34.0); MCHC 35.9 G/DL (30.0-36.0); MCV 111.8 FL (86-99); MEAN PLAT.VOLUME 12.3 uM^3 (9.0-12.4); PLATELET COUNT 102 K/uL (156-360); RBC DIS.WIDTH-SD 64.9 % (39-53); RED BLOOD COUNT 2.12 M/uL (4.00-5.50); WHITE BLOOD COUNT 13.1 K/uL (4.1-10.2)
[2016-06-11 07:29] LABS: EOSINOPHIL (%) 0 % (0-5); IMMATURE GRANULOCYTE COUNT 0.1 K/uL; INSTRUMENT ABS NEUTROPHIL CT 12.1 K/uL; LYMPHOCYTE COUNT 0.6 K/uL (1.0-2.8); MONOCYTE (%) 1.9 % (3-12); MONOCYTE COUNT 0.3 K/uL (0-0.8); NEUTROPHIL (%) 92.3 % (45-76); NEUTROPHIL COUNT 12.1 K/uL (1.8-6.4)
[2016-06-11 07:32] LABS: ANISOCYTOSIS 2+; MACROCYTES 1+; OVALOCYTES 1+; POIKILOCYTOSIS 1+; POLYCHROMASIA 1+; SPHEROCYTES 1+
[2016-06-11 08:02] VITALS: BP 139/90
[2016-06-11 10:43] LABS: POINT-OF-CARE METER ID UU13113725
[2016-06-11 16:00] VITALS: BP 134/80
[2016-06-11 16:28] LABS: POINT-OF-CARE METER ID UU13113725
[2016-06-11 20:00] VITALS: BP 150/98
[2016-06-12 00:55] VITALS: BP 140/97
[2016-06-12 03:43] VITALS: BP 144/99
[2016-06-12 07:18] LABS: ANION GAP 6 MEQ/L (2-14); CHLORIDE 101 MEQ/L (99-109); GFR ESTIMATE (CALCULATED) > 59 mL/min/; GLUCOSE 242 mg/dL (70-99); MAGNESIUM 1.9 mg/dl (1.3-2.7); POTASSIUM 4.5 MEQ/L (3.7-5.4); SAMPLE HEMOLYSIS CHECK 0; SAMPLE ICTERIC CHECK 0; SAMPLE LIPEMIA CHECK 0; SODIUM 137 MEQ/L (136-147); UREA NITROGEN (BUN) 26 mg/dL (9-23)
[2016-06-12 07:28] LABS: EOSINOPHIL (%) 0.1 % (0-5); HEMATOCRIT 25.7 % (38.0-50.0); IMMATURE GRANULOCYTE (%) 0.7 % (0.0-0.7); IMMATURE GRANULOCYTE COUNT 0.1 K/uL; INSTRUMENT ABS NEUTROPHIL CT 10.3 K/uL; LYMPHOCYTE COUNT 1.2 K/uL (1.0-2.8); MCH 37.8 PG (29.0-34.0); MCHC 34.2 G/DL (30.0-36.0); MCV 110.3 FL (86-99); MEAN PLAT.VOLUME 12.1 uM^3 (9.0-12.4); MONOCYTE (%) 5.5 % (3-12); MONOCYTE COUNT 0.7 K/uL (0-0.8); NEUTROPHIL (%) 83.6 % (45-76); NEUTROPHIL COUNT 10.3 K/uL (1.8-6.4); PLATELET COUNT 111 K/uL (156-360); RBC DIS.WIDTH-CV 26.7 % (11.8-14.6); RED BLOOD COUNT 2.33 M/uL (4.00-5.50); WHITE BLOOD COUNT 12.3 K/uL (4.1-10.2)
[2016-06-12 08:18] LABS: ANISOCYTOSIS 2+; MACROCYTES 1+; OVALOCYTES 1+; POLYCHROMASIA 1+; SPHEROCYTES 1+
[2016-06-12 08:22] VITALS: BP 141/105
[2016-06-12 11:39] LABS: POINT-OF-CARE METER ID UU13113725
[2016-06-12 15:34] VITALS: BP 129/92
[2016-06-12 16:14] LABS: POINT-OF-CARE METER ID UU13113725
[2016-06-12 19:16] VITALS: BP 126/90
[2016-06-12 21:10] LABS: POINT-OF-CARE METER ID UU13113725
[2016-06-12 23:53] VITALS: BP 134/93
[2016-06-13 06:42] LABS: POINT-OF-CARE METER ID UU13113725
[2016-06-13 07:00] VITALS: BP 136/80
[2016-06-13] MEDS ORDERED: CYANOCOBALAM1000 MCG PO ×2 (09:01)
[2016-06-13] MEDS ORDERED: ADVAIR HFA120 INHALA IH (09:01)
[2016-06-13] MEDS ORDERED: PREDNISONE10 M1 PO (09:07)
[2016-06-13 11:46] LABS: POINT-OF-CARE METER ID UU13113725
[2016-06-15 12:20] LABS: POINT-OF-CARE METER ID UU13113725
== END 2016-06-13 14:20 | DRG 190 ==
LOC: EME 11:49 → 5EAST 19:50 → EDOF 19:50 → 5EAST 21:35
PROVIDERS: Emergency Medicine; Hospitalist; Internal Medicine
DX: J44.1 Chronic obstructive pulmonary disease with (acute) exacerbation (principal); I50.23 Acute on chronic systolic (congestive) heart failure; D51.9 Vitamin B12 deficiency anemia, unspecified; J44.0 Chronic obstructive pulmonary disease with (acute) lower respiratory infection; J20.9 Acute bronchitis, unspecified; D69.59 Other secondary thrombocytopenia; I10 Essential (primary) hypertension; I48.91 Unspecified atrial fibrillation; I49.5 Sick sinus syndrome; E11.65 Type 2 diabetes mellitus with hyperglycemia; D72.828 Other elevated white blood cell count; T38.0X5A Adverse effect of glucocorticoids and synthetic analogues, initial encounter; I25.10 Atherosclerotic heart disease of native coronary artery without angina pectoris; I25.2 Old myocardial infarction; I25.5 Ischemic cardiomyopathy; I87.2 Venous insufficiency (chronic) (peripheral); Z91.14 Patient's other noncompliance with medication regimen; J45.909 Unspecified asthma, uncomplicated; F43.22 Adjustment disorder with anxiety; E78.5 Hyperlipidemia, unspecified; F31.9 Bipolar disorder, unspecified; G89.29 Other chronic pain; F17.210 Nicotine dependence, cigarettes, uncomplicated; Z59.0 Homelessness; Z95.5 Presence of coronary angioplasty implant and graft; Z86.73 Personal history of transient ischemic attack (TIA), and cerebral infarction without residual deficits; Z86.718 Personal history of other venous thrombosis and embolism; Z86.711 Personal history of pulmonary embolism; Z79.01 Long term (current) use of anticoagulants; Z79.4 Long term (current) use of insulin; Z96.642 Presence of left artificial hip joint; Z66 Do not resuscitate
CPT/HCPCS: 36600; 70450; 71010; 80048; 80048 91; 82140; 82272; 82607; 82728; 82746; 82803; 82948; 83540; 83615; 83735; 83880; 83921 90; 84484; 85025; 85027; 85045; 86850; 86860; 86870; 86880; 86900; 86901; 86905; 86920; 87040; 87070; 87205; 93005; 93970; 94640; 94640 76; 94799; 99202; 99281; 99285; J1815; J1940; J2920; J2930; J3475; J7512

== ENCOUNTER 2016-10-20 21:52 | Inpatient (IN) | payer OTHER ==
[~2016-10-20] VITALS: Ht 198.1 cm; Wt 99.7 kg
[~2016-10-20 21:52] MED LIST changes: +CARTIA XT120 MG PO; +CYANOCOBALAM1000 MCG PO; +DELTASONE20 M1 PO; +HUMALOG100 UNIT/1 SC; +PREDNISONE10 M1 PO; +REFRESH TEARS15 ML BOTH EYES; +SPIRIVA RESPIMAT4 GM IH
[2016-10-20 23:02] LABS: CARBON DIOXIDE (BICARBONATE) 31.7 MEQ/L (20-31)
[2016-10-20 23:13] LABS: CHLORIDE 106 mEq/L (99-109); POTASSIUM 3.7 mEq/L (3.7-5.4); SODIUM 141 mEq/L (136-147)
[2016-10-20 23:14] LABS: GLUCOSE 185 mg/dL (70-99)
[2016-10-20 23:16] LABS: ANION GAP 9 MEQ/L (2-14)
[2016-10-20 23:18] LABS: GFR ESTIMATE (CALCULATED) > 59 mL/min/
[2016-10-20 23:19] LABS: UREA NITROGEN (BUN) 10 mg/dL (9-23)
[2016-10-20 23:27] LABS: TROP-I INTERPRETATION NEGATIVE; TROPONIN-I 0.06 ng/mL (0.0-0.30)
[2016-10-20 23:48] LABS: HEMATOCRIT 60.1 % (38.0-50.0); MCHC 29.5 G/DL (30.0-36.0); MCV 91.6 FL (86-99); RBC DIS.WIDTH-CV 17.4 % (11.8-14.6); RBC DIS.WIDTH-SD 53.2 % (39-53); RED BLOOD COUNT 6.56 M/uL (4.00-5.50); WHITE BLOOD COUNT 3.3 K/uL (4.1-10.2)
[2016-10-21 00:20] LABS: IMM.PLATELET FRACTION 8.6 (1-7); PLAT.SUFFICIENCY ADEQUATE; PLATELET CLUMPS PRESENT - PLATELET COUNT APPEARS ADQ.
[2016-10-21 05:06] VITALS: BP 131/94
[2016-10-21 07:28] VITALS: BP 146/84
[2016-10-21 08:00] LABS: POINT-OF-CARE METER ID UU13113717
[2016-10-21 09:26] LABS: BASE EXCESS 4.9 mEq/L (-3 to +3); BICARBONATE 30.4 mEq/L (22-26); CARBOXY HGB 2.9 % (0-5); COMMENTS - BLOOD GASES NEG A+C+; DEVICE NC; METHEMOGLOBIN 1.6 % (0-1.5); O2 FLOW 2 L/MIN; PCO2 48 mm Hg (35-45); PO2 91 mm Hg (80-100); SITE LR; TOTAL RESP RATE 12 resp/min; pH 7.41 (7.35-7.45)
[2016-10-21 10:32] LABS: ANION GAP 6 MEQ/L (2-14); CHLORIDE 105 MEQ/L (99-109); GFR ESTIMATE (CALCULATED) > 59 mL/min/; GLUCOSE 179 mg/dL (70-99); POTASSIUM 3.9 MEQ/L (3.7-5.4); SAMPLE HEMOLYSIS CHECK 0; SAMPLE ICTERIC CHECK 0; SAMPLE LIPEMIA CHECK 0; SODIUM 141 MEQ/L (136-147); UREA NITROGEN (BUN) 8 mg/dL (9-23)
[2016-10-21 10:40] LABS: HEMATOCRIT 28.8 % (38.0-50.0); MEAN PLAT.VOLUME 11.9 uM^3 (9.0-12.4); PLATELET COUNT 124 K/uL (156-360)
[2016-10-21 10:42] LABS: MCH 36.7 PG (29.0-34.0); MCHC 35.8 G/DL (30.0-36.0); MCV 102.5 FL (86-99); RED BLOOD COUNT 2.81 M/uL (4.00-5.50)
[2016-10-21 11:09] VITALS: BP 165/85
[2016-10-21 14:44] LABS: INTER. NORMALIZED RATIO 1.4; PROTHROMBIN TIME 15.1 SEC (10.2-12.9)
[2016-10-21 14:47] LABS: PTT 36.3 SEC (25-37)
[2016-10-21 15:16] VITALS: BP 137/79
[2016-10-21 16:42] LABS: POINT-OF-CARE METER ID UU13113717
[2016-10-21 20:18] VITALS: BP 134/70
[2016-10-21 21:58] LABS: POINT-OF-CARE METER ID UU14174225
[2016-10-21 23:36] VITALS: BP 127/77
[2016-10-22 03:21] VITALS: BP 134/80
[2016-10-22 06:19] LABS: CHLORIDE 103 mEq/L (99-109); POTASSIUM 3.7 mEq/L (3.7-5.4); SODIUM 141 mEq/L (136-147)
[2016-10-22 06:21] LABS: GLUCOSE 132 mg/dL (70-99)
[2016-10-22 06:22] LABS: ANION GAP 10 MEQ/L (2-14)
[2016-10-22 06:24] LABS: GFR ESTIMATE (CALCULATED) > 59 mL/min/
[2016-10-22 06:25] LABS: UREA NITROGEN (BUN) 18 mg/dL (9-23)
[2016-10-22 06:45] LABS: EOSINOPHIL (%) 1.5 % (0-5); EOSINOPHIL COUNT 0.1 K/uL (0-0.3); HEMATOCRIT 32.1 % (38.0-50.0); IMMATURE GRANULOCYTE (%) 0.8 % (0.0-0.7); IMMATURE GRANULOCYTE COUNT 0.1 K/uL; INSTRUMENT ABS NEUTROPHIL CT 6.7 K/uL; LYMPHOCYTE COUNT 1.3 K/uL (1.0-2.8); MCH 28.2 PG (29.0-34.0); MCHC 30.2 G/DL (30.0-36.0); MCV 93.3 FL (86-99); MEAN PLAT.VOLUME 11.6 uM^3 (9.0-12.4); MONOCYTE (%) 5.9 % (3-12); MONOCYTE COUNT 0.5 K/uL (0-0.8); NEUTROPHIL (%) 76.9 % (45-76); NEUTROPHIL COUNT 6.7 K/uL (1.8-6.4); PLATELET COUNT 118 K/uL (156-360); RBC DIS.WIDTH-CV 15.9 % (11.8-14.6); RBC DIS.WIDTH-SD 54.3 % (39-53); RED BLOOD COUNT 3.44 M/uL (4.00-5.50); WHITE BLOOD COUNT 8.7 K/uL (4.1-10.2)
[2016-10-22 07:50] VITALS: BP 113/69
[2016-10-22 11:38] VITALS: BP 109/62
[2016-10-22 12:21] LABS: POINT-OF-CARE METER ID UU13113717
[2016-10-22 15:50] VITALS: BP 104/67
[2016-10-22 20:06] VITALS: BP 116/76
[2016-10-22 21:55] LABS: POINT-OF-CARE METER ID UU13113717
[2016-10-23] VITALS (7 sets, daily range): BP systolic 126–160; BP diastolic 70–97
[2016-10-23 06:49] LABS: HEMATOCRIT 32.8 % (38.0-50.0); MCH 28.3 PG (29.0-34.0); MCHC 30.5 G/DL (30.0-36.0); MCV 92.9 FL (86-99); MEAN PLAT.VOLUME 11.9 uM^3 (9.0-12.4); PLATELET COUNT 114 K/uL (156-360); RBC DIS.WIDTH-CV 16.3 % (11.8-14.6); RED BLOOD COUNT 3.53 M/uL (4.00-5.50); WHITE BLOOD COUNT 6.6 K/uL (4.1-10.2)
[2016-10-23 07:11] LABS: PLAT.SUFFICIENCY DECREASED
[2016-10-23 08:35] LABS: POINT-OF-CARE METER ID UU13113717
[2016-10-23 12:21] LABS: POINT-OF-CARE METER ID UU13113717
[2016-10-23 17:23] LABS: POINT-OF-CARE METER ID UU13113717
[2016-10-23 21:24] LABS: POINT-OF-CARE METER ID UU14188625
[2016-10-24 03:00] VITALS: BP 127/96
[2016-10-24 08:00] VITALS: BP 166/90
[2016-10-24 08:01] LABS: METH RESISTANT S AUREUS PCR POSITIVE (NEGATIVE)
[2016-10-24 08:02] LABS: PROBE CHECK PASS
[2016-10-24 08:57] LABS: POINT-OF-CARE METER ID UU13113717
[2016-10-24 11:04] VITALS: BP 160/89
[2016-10-24 12:16] LABS: POINT-OF-CARE METER ID UU13113717
[2016-10-24 16:28] VITALS: BP 152/85
[2016-10-24 19:40] VITALS: BP 159/81
[2016-10-24 23:23] VITALS: BP 147/88
[2016-10-25 03:53] VITALS: BP 140/77
[2016-10-25 09:13] VITALS: BP 149/91
[2016-10-25] MEDS ORDERED: FUROSEMIDE40 MG PO (11:23)
[2016-10-25] MEDS ORDERED: ADVAIR HFA120 INHALA IH (11:23)
[2016-10-25] MEDS ORDERED: REFRESH TEARS15 ML BOTH EYES (11:23)
[2016-10-25] MEDS ORDERED: ENALAPRIL MALEAT5 MG PO ×2 (11:23→11:24)
[2016-10-25] MEDS ORDERED: DUONEB 2.5-0.5 M3 ML AEROSOL (11:23)
[2016-10-25] MEDS ORDERED: METFORMIN HCL1000 MG PO (11:23)
[2016-10-25] MEDS ORDERED: XARELTO15 MG PO (11:23)
[2016-10-25] MEDS ORDERED: TYLENOL REGULA325 MG PO (11:23)
[2016-10-25] MEDS ORDERED: ST. JOSEPH ASPI81 MG PO (11:23)
[2016-10-25] MEDS ORDERED: HUMALOG100 UNIT/1 SC (11:23)
[2016-10-25] MEDS ORDERED: PROAIR HFA8.5 GM IH (11:23)
[2016-10-25] MEDS ORDERED: JANUVIA25 M1 PO (11:23)
[2016-10-25] MEDS ORDERED: PANTOPRAZOLE SO40 MG PO ×2 (11:23→11:24)
[2016-10-25] MEDS ORDERED: FERROUS GLUCON324 MG PO (11:23)
[2016-10-25] MEDS ORDERED: ATORVASTATIN CA40 MG PO (11:23)
[2016-10-25] MEDS ORDERED: CEPHALEXIN500 MG PO (11:23)
[2016-10-25] MEDS ORDERED: CYANOCOBALAM1000 MCG PO (11:23)
[2016-10-25] MEDS ORDERED: CARVEDILOL12.5 MG PO (11:23)
[2016-10-25] MEDS ORDERED: XARELTO20 MG PO (11:23)
[2016-10-25] MEDS ORDERED: K-TAB10 MEQ PO (11:23)
[2016-10-25] MEDS ORDERED: HYDROCODON-ACE1 EAC9 PO (11:23)
[2016-10-25] MEDS ORDERED: SPIRIVA RESPIMAT4 GM IH (11:23)
[2016-10-25] MEDS ORDERED: NITROSTAT0.4 MG SL (11:23)
[2016-10-25] MEDS ORDERED: DOXYCYCLINE HY100 M3 PO (11:23)
[2016-10-25 11:33] VITALS: BP 150/71
[2016-10-25 12:49] LABS: POINT-OF-CARE METER ID UU14174225
[2016-10-25] MEDS ORDERED: INCRUSE ELLI62.5 MCG IH (13:10)
== END 2016-10-25 16:33 | disposition home health service (06) | DRG 300 ==
LOC: EME 21:52 → EDOF 10-21 03:48 → ENRESERV 10-21 03:49 → CANRESERV 10-21 04:12 → ENRESERV 10-21 04:12 → EDOF 10-21 04:29 → 5SOUTH 10-21 04:29 → EDOF 10-21 04:29 → ENRESERV 10-21 04:34 → 5SOUTH 10-21 04:52
PROVIDERS: Emergency Medicine; Hospitalist; Nurse Practitioner Adult Health
DX: I82.442 Acute embolism and thrombosis of left tibial vein (principal); L03.116 Cellulitis of left lower limb; I25.10 Atherosclerotic heart disease of native coronary artery without angina pectoris; L03.115 Cellulitis of right lower limb; I83.028 Varicose veins of left lower extremity with ulcer other part of lower leg; L97.521 Non-pressure chronic ulcer of other part of left foot limited to breakdown of skin; L97.821 Non-pressure chronic ulcer of other part of left lower leg limited to breakdown of skin; I83.018 Varicose veins of right lower extremity with ulcer other part of lower leg; L97.811 Non-pressure chronic ulcer of other part of right lower leg limited to breakdown of skin; I11.0 Hypertensive heart disease with heart failure; E11.51 Type 2 diabetes mellitus with diabetic peripheral angiopathy without gangrene; I50.22 Chronic systolic (congestive) heart failure; Z95.1 Presence of aortocoronary bypass graft; I25.2 Old myocardial infarction; I48.91 Unspecified atrial fibrillation; F17.210 Nicotine dependence, cigarettes, uncomplicated; I25.5 Ischemic cardiomyopathy; Z91.14 Patient's other noncompliance with medication regimen; Z96.642 Presence of left artificial hip joint; Z95.5 Presence of coronary angioplasty implant and graft; Z86.73 Personal history of transient ischemic attack (TIA), and cerebral infarction without residual deficits; Z86.711 Personal history of pulmonary embolism; E78.5 Hyperlipidemia, unspecified; E11.621 Type 2 diabetes mellitus with foot ulcer; Z86.718 Personal history of other venous thrombosis and embolism; K21.9 Gastro-esophageal reflux disease without esophagitis; J44.9 Chronic obstructive pulmonary disease, unspecified
CPT/HCPCS: 36600; 71010; 80048; 82803; 82948; 83605; 83880; 84484; 85025; 85027; 85610; 85730; 87040; 87070; 87075; 87077; 87147; 87186; 87205; 87641; 93005; 93970; 94640; 94640 76; 94799; 99202; 99281; 99285; A6260; J0690; J0696; J1100; J1815; J1940; J2270; J2405; J2543; J7050

== ENCOUNTER 2016-11-29 12:00 | Inpatient (IN) | payer OTHER ==
[~2016-11-29] VITALS: Ht 190.5 cm; Wt 110.2 kg
[~2016-11-29 12:00] MED LIST changes: +DOXYCYCLINE HY100 M3 PO; +HYDROCODON-ACE1 EAC9 PO; +INCRUSE ELLI62.5 MCG IH
[2016-11-29 13:05] LABS: ADD MIUA? YES; BILIRUBIN NEGATIVE; BLOOD SMALL; COLOR YELLOW ((YELLOW)); GLUCOSE (STRIP) NEGATIVE; KETONES NEGATIVE; LEUKOCYTES NEGATIVE; NITRITE NEGATIVE; PROTEIN (STRIP) 100; SPECIFIC GRAVITY 1.017 (1.000-1.030); UROBILINOGEN 0.2 MG/DL (0.2-1.0)
[2016-11-29 13:06] LABS: BASE EXCESS 2.5 mEq/L (-3 to +3); BICARBONATE 26.3 mEq/L (22-26); CARBOXY HGB 3.4 % (0-5); METHEMOGLOBIN 1.4 % (0-1.5); pH 7.46 (7.35-7.45)
[2016-11-29 13:07] LABS: COMMENTS - BLOOD GASES A+C+; DEVICE NC; O2 FLOW 2 L/MIN; PCO2 37 mm Hg (35-45); PO2 67 mm Hg (80-100); SITE RR; TOTAL RESP RATE 32 resp/min
[2016-11-29 13:10] LABS: BACTERIA NONE SEEN /HPF; EPITHELIAL CELLS RARE /HPF; MUCUS NONE SEEN /LPF; RED BLOOD CELLS 0-5 /HPF (0-5); UCUL ADDED? NO; WHITE BLOOD CELLS 0-5 /HPF (0-5)
[2016-11-29 13:31] LABS: CARBON DIOXIDE (BICARBONATE) 28.6 MEQ/L (20-31); HEMATOCRIT 30.5 % (38.0-50.0); MCH 34.6 PG (29.0-34.0); MCHC 34.1 G/DL (30.0-36.0); MCV 101.3 FL (86-99); MEAN PLAT.VOLUME 11.9 uM^3 (9.0-12.4); PLATELET COUNT 79 K/uL (156-360); RBC DIS.WIDTH-SD 59.6 % (39-53); RED BLOOD COUNT 3.01 M/uL (4.00-5.50); WHITE BLOOD COUNT 8.9 K/uL (4.1-10.2)
[2016-11-29 13:45] LABS: CHLORIDE 104 mEq/L (99-109)
[2016-11-29 13:46] LABS: POTASSIUM 3.8 mEq/L (3.7-5.4); SODIUM 139 mEq/L (136-147)
[2016-11-29 13:47] LABS: GLUCOSE 188 mg/dL (70-99)
[2016-11-29 13:49] LABS: ANION GAP 11 MEQ/L (2-14); TROP-I INTERPRETATION NEGATIVE; TROPONIN-I 0.02 ng/mL (0.0-0.30)
[2016-11-29 13:51] LABS: GFR ESTIMATE (CALCULATED) > 59 mL/min/
[2016-11-29 13:52] LABS: UREA NITROGEN (BUN) 18 mg/dL (9-23)
[2016-11-29 14:47] LABS: POINT-OF-CARE METER ID UU13113702
[2016-11-29 16:38] VITALS: BP 115/62
[2016-11-29 17:27] LABS: INFLUENZA A VIRAL ANTIGEN NEGATIVE; INFLUENZA B VIRAL ANTIGEN NEGATIVE
[2016-11-29 17:47] LABS: POINT-OF-CARE METER ID UU14314088
[2016-11-29 18:01] LABS: TROP-I INTERPRETATION NEGATIVE; TROPONIN-I 0.04 ng/mL (0.0-0.30)
[2016-11-29 19:15] VITALS: BP 129/56
[2016-11-29 21:21] LABS: POINT-OF-CARE METER ID UU13113698
[2016-11-30] VITALS (7 sets, daily range): BP systolic 111–137; BP diastolic 68–95
[2016-11-30 01:27] LABS: TROP-I INTERPRETATION NEGATIVE; TROPONIN-I 0.02 ng/mL (0.0-0.30)
[2016-11-30 06:14] LABS: ALKALINE PHOSPHATASE 50 IU/L (3-129); ANION GAP 8 MEQ/L (2-14); CHLORIDE 107 MEQ/L (99-109); GFR ESTIMATE (CALCULATED) > 59 mL/min/; GLUCOSE 217 mg/dL (70-99); POTASSIUM 3.7 MEQ/L (3.7-5.4); SAMPLE HEMOLYSIS CHECK 0; SAMPLE ICTERIC CHECK 0; SAMPLE LIPEMIA CHECK 0; SODIUM 140 MEQ/L (136-147); TOTAL BILIRUBIN 0.6 MG/DL (0.0-1.0); UREA NITROGEN (BUN) 15 mg/dL (9-23)
[2016-11-30 06:15] LABS: TROP-I INTERPRETATION NEGATIVE; TROPONIN-I 0.02 ng/mL (0.0-0.30)
[2016-11-30 06:37] LABS: EOSINOPHIL (%) 0 % (0-5); HEMATOCRIT 26.5 % (38.0-50.0); HEMATOLOGY COMMENT 1 SMEAR COMPATIBLE; IMMATURE GRANULOCYTE (%) 0.9 % (0.0-0.7); IMMATURE GRANULOCYTE COUNT 0.1 K/uL; LYMPHOCYTE COUNT 0.5 K/uL (1.0-2.8); MACROCYTES 3+; MCH 41.1 PG (29.0-34.0); MCHC 37.4 G/DL (30.0-36.0); MEAN PLAT.VOLUME 12.8 uM^3 (9.0-12.4); MONOCYTE (%) 1.6 % (3-12); MONOCYTE COUNT 0.1 K/uL (0-0.8); NEUTROPHIL (%) 90.5 % (45-76); PLATELET COUNT 69 K/uL (156-360); RED BLOOD COUNT 2.41 M/uL (4.00-5.50); WHITE BLOOD COUNT 7.7 K/uL (4.1-10.2)
[2016-11-30 07:38] LABS: POINT-OF-CARE METER ID UU13113698
[2016-11-30 11:18] LABS: POINT-OF-CARE METER ID UU13113698
[2016-11-30 16:22] LABS: POINT-OF-CARE METER ID UU13113698
[2016-11-30 21:11] LABS: POINT-OF-CARE METER ID UU13113698
[2016-12-01 04:13] VITALS: BP 120/77
[2016-12-01 05:14] LABS: HEMATOCRIT 26.6 % (38.0-50.0); MCH 38.1 PG (29.0-34.0); MEAN PLAT.VOLUME 12.6 uM^3 (9.0-12.4); PLATELET COUNT 65 K/uL (156-360); RED BLOOD COUNT 2.44 M/uL (4.00-5.50); WHITE BLOOD COUNT 9.7 K/uL (4.1-10.2)
[2016-12-01 06:11] LABS: ANISOCYTOSIS 1+; BURR CELLS 1+; EOSINOPHIL (%) 0.1 % (0-5); IMMATURE GRANULOCYTE (%) 1.8 % (0.0-0.7); IMMATURE GRANULOCYTE COUNT 0.2 K/uL; INSTRUMENT ABS NEUTROPHIL CT 8.5 K/uL; LYMPHOCYTE COUNT 0.7 K/uL (1.0-2.8); MACROCYTES 1+; MONOCYTE (%) 4.1 % (3-12); MONOCYTE COUNT 0.4 K/uL (0-0.8); NEUTROPHIL (%) 87.1 % (45-76); NEUTROPHIL COUNT 8.5 K/uL (1.8-6.4); OVALOCYTES 1+; POIKILOCYTOSIS 1+
[2016-12-01 07:05] LABS: ANION GAP 11 MEQ/L (2-14); CHLORIDE 104 MEQ/L (99-109); GFR ESTIMATE (CALCULATED) > 59 mL/min/; GLUCOSE 267 mg/dL (70-99); MAGNESIUM 1.7 mg/dl (1.3-2.7); POTASSIUM 4.1 MEQ/L (3.7-5.4); SODIUM 137 MEQ/L (136-147); UREA NITROGEN (BUN) 21 mg/dL (9-23)
[2016-12-01 07:23] VITALS: BP 130/97
[2016-12-01 07:41] LABS: POINT-OF-CARE METER ID UU13113698
[2016-12-01 10:49] VITALS: BP 147/92
[2016-12-01 11:12] LABS: POINT-OF-CARE METER ID UU13113781
[2016-12-01 15:00] VITALS: BP 140/95
[2016-12-01 16:09] LABS: POINT-OF-CARE METER ID UU13113698
[2016-12-01 18:48] VITALS: BP 123/81
[2016-12-01 21:36] LABS: POINT-OF-CARE METER ID UU14174216
[2016-12-02] VITALS (8 sets, daily range): BP systolic 114–149; BP diastolic 55–95
[2016-12-02 05:55] LABS: C-REACTIVE PROTEIN 77.7 MG/L (0-10)
[2016-12-02 07:43] LABS: POINT-OF-CARE METER ID UU14314088
[2016-12-02 07:56] LABS: MCH 38.3 PG (29.0-34.0); MCHC 35.4 G/DL (30.0-36.0); MCV 108.3 FL (86-99); MEAN PLAT.VOLUME 13.3 uM^3 (9.0-12.4); PLATELET COUNT 66 K/uL (156-360); WHITE BLOOD COUNT 9.1 K/uL (4.1-10.2)
[2016-12-02 08:11] LABS: ANION GAP 8 MEQ/L (2-14); CHLORIDE 108 MEQ/L (99-109); GFR ESTIMATE (CALCULATED) > 59 mL/min/; GLUCOSE 191 mg/dL (70-99); POTASSIUM 4.1 MEQ/L (3.7-5.4); SODIUM 140 MEQ/L (136-147); UREA NITROGEN (BUN) 23 mg/dL (9-23)
[2016-12-02 11:59] LABS: POINT-OF-CARE METER ID UU14174216
[2016-12-02 16:15] LABS: POINT-OF-CARE METER ID UU14174216
[2016-12-02 21:47] LABS: POINT-OF-CARE METER ID UU13113781
[2016-12-03 03:46] VITALS: BP 141/92
[2016-12-03 06:53] LABS: HEMATOCRIT 29.6 % (38.0-50.0); HEMATOLOGY COMMENT 1 COLD AGGLUTININS; MCHC 29.7 G/DL (30.0-36.0); MEAN PLAT.VOLUME 13.9 uM^3 (9.0-12.4); PLATELET COUNT 79 K/uL (156-360); RBC DIS.WIDTH-CV 17.3 % (11.8-14.6); RBC DIS.WIDTH-SD 58.3 % (39-53); WHITE BLOOD COUNT 8.1 K/uL (4.1-10.2)
[2016-12-03 06:55] LABS: MCH 27.5 PG (29.0-34.0); MCV 92.5 FL (86-99)
[2016-12-03 07:06] VITALS: BP 157/98
[2016-12-03 07:33] LABS: POINT-OF-CARE METER ID UU14314088
[2016-12-03 12:06] LABS: POINT-OF-CARE METER ID UU14314088
[2016-12-03 12:13] VITALS: BP 141/98
[2016-12-03 16:22] VITALS: BP 157/95
[2016-12-03 16:33] LABS: POINT-OF-CARE METER ID UU14314088
[2016-12-03 19:03] VITALS: BP 135/91
[2016-12-03 21:08] LABS: POINT-OF-CARE METER ID UU13113698
[2016-12-04 00:45] VITALS: BP 140/94
[2016-12-04 04:59] VITALS: BP 147/84
[2016-12-04 05:47] LABS: HEMATOCRIT 26.3 % (38.0-50.0); MCH 38.3 PG (29.0-34.0); MCHC 35.4 G/DL (30.0-36.0); MCV 108.2 FL (86-99); NRBC (%) 3.4 /100 WBC (0-0); RED BLOOD COUNT 2.43 M/uL (4.00-5.50); WHITE BLOOD COUNT 8.8 K/uL (4.1-10.2)
[2016-12-04 05:48] LABS: INTER. NORMALIZED RATIO 1.6; PROTHROMBIN TIME 18.3 SEC (10.2-12.9)
[2016-12-04 06:11] LABS: ANION GAP 6 MEQ/L (2-14); CHLORIDE 108 MEQ/L (99-109); GFR ESTIMATE (CALCULATED) > 59 mL/min/; GLUCOSE 148 mg/dL (70-99); IRON 36 MCG/DL (35-150); POTASSIUM 3.8 MEQ/L (3.7-5.4); SAMPLE HEMOLYSIS CHECK 0; SAMPLE ICTERIC CHECK 0; SAMPLE LIPEMIA CHECK 0; SODIUM 140 MEQ/L (136-147); UREA NITROGEN (BUN) 17 mg/dL (9-23)
[2016-12-04 06:14] LABS: ANISOCYTOSIS 1+; BURR CELLS 1+; EOSINOPHIL (%) 0.5 % (0-5); IMMATURE GRANULOCYTE (%) 1.3 % (0.0-0.7); IMMATURE GRANULOCYTE COUNT 0.1 K/uL; INSTRUMENT ABS NEUTROPHIL CT 6.8 K/uL; LYMPHOCYTE COUNT 1.1 K/uL (1.0-2.8); MACROCYTES 2+; MONOCYTE COUNT 0.7 K/uL (0-0.8); NEUTROPHIL (%) 77.5 % (45-76); NEUTROPHIL COUNT 6.8 K/uL (1.8-6.4); PLATELET COUNT 84 K/uL (156-360); POIKILOCYTOSIS 1+; POLYCHROMASIA 1+; TEAR DROP CELLS 1+
[2016-12-04 07:59] VITALS: BP 138/82
[2016-12-04 08:08] LABS: POINT-OF-CARE METER ID UU13113781
[2016-12-04 10:48] VITALS: BP 128/80
[2016-12-04 11:15] LABS: POINT-OF-CARE METER ID UU13113698
[2016-12-04 16:28] LABS: POINT-OF-CARE METER ID UU13113781
[2016-12-04] MEDS ORDERED: SPIRIVA RESPIMAT4 GM IH (17:15)
[2016-12-04 19:48] VITALS: BP 152/91
[2016-12-04 22:22] LABS: POINT-OF-CARE METER ID UU14208753
[2016-12-04 23:28] VITALS: BP 152/98
[2016-12-05 03:21] VITALS: BP 122/83
[2016-12-05 06:48] LABS: POINT-OF-CARE METER ID UU14117124
[2016-12-05 08:21] VITALS: BP 138/85
[2016-12-05 12:03] LABS: POINT-OF-CARE METER ID UU14208753
[2016-12-05 16:34] VITALS: BP 132/82
[2016-12-05 17:02] LABS: POINT-OF-CARE METER ID UU14117124
[2016-12-05 21:42] LABS: POINT-OF-CARE METER ID UU14208753
[2016-12-05 23:39] VITALS: BP 154/86
[2016-12-06 06:57] LABS: POINT-OF-CARE METER ID UU14208753
[2016-12-06 08:14] VITALS: BP 135/98
[2016-12-06 11:01] LABS: GFR ESTIMATE (CALCULATED) > 59 mL/min/
[2016-12-06 11:07] LABS: HEMATOCRIT 28.8 % (38.0-50.0); MCHC 30.6 G/DL (30.0-36.0); NRBC (%) 1.3 /100 WBC (0-0); RBC DIS.WIDTH-CV 18.8 % (11.8-14.6); RBC DIS.WIDTH-SD 61.4 % (39-53)
[2016-12-06 11:27] LABS: HEMATOLOGY COMMENT 1 SN; MCH 28.8 PG (29.0-34.0); MCV 94.1 FL (86-99); MEAN PLAT.VOLUME 12.9 uM^3 (9.0-12.4); PLAT.SUFFICIENCY DECREASED; PLATELET COUNT 85 K/uL (156-360); RED BLOOD COUNT 3.06 M/uL (4.00-5.50)
[2016-12-06 11:28] LABS: POINT-OF-CARE METER ID UU14208753
[2016-12-06 16:31] VITALS: BP 142/80
[2016-12-06 16:53] LABS: POINT-OF-CARE METER ID UU14208753
[2016-12-06 21:54] LABS: POINT-OF-CARE METER ID UU14117124
[2016-12-07 00:10] VITALS: BP 159/82
[2016-12-07 05:58] LABS: HEMATOCRIT 29.5 % (38.0-50.0); MCH 29.2 PG (29.0-34.0); MCHC 30.2 G/DL (30.0-36.0); MCV 96.7 FL (86-99); MEAN PLAT.VOLUME 12.2 uM^3 (9.0-12.4); NRBC (%) 1.2 /100 WBC (0-0); PLATELET COUNT 91 K/uL (156-360); RBC DIS.WIDTH-CV 19.5 % (11.8-14.6); RED BLOOD COUNT 3.05 M/uL (4.00-5.50); WHITE BLOOD COUNT 7.5 K/uL (4.1-10.2)
[2016-12-07 06:17] LABS: POINT-OF-CARE METER ID UU14188577
[2016-12-07 08:47] VITALS: BP 140/81
[2016-12-07 11:50] LABS: POINT-OF-CARE METER ID UU14208753
[2016-12-07 16:44] VITALS: BP 144/82
[2016-12-07 16:54] LABS: POINT-OF-CARE METER ID UU14188577
[2016-12-07 21:20] LABS: INTERNAL CONTROL VALID? YES
[2016-12-07 21:55] LABS: POINT-OF-CARE METER ID UU14117124
[2016-12-07 23:54] VITALS: BP 142/85
[2016-12-08 06:25] LABS: POINT-OF-CARE METER ID UU14188577
[2016-12-08 06:31] LABS: ANION GAP 6 MEQ/L (2-14); CHLORIDE 106 MEQ/L (99-109); GFR ESTIMATE (CALCULATED) > 59 mL/min/; GLUCOSE 292 mg/dL (70-99); POTASSIUM 4.1 MEQ/L (3.7-5.4); SAMPLE HEMOLYSIS CHECK 0; SAMPLE ICTERIC CHECK 0; SAMPLE LIPEMIA CHECK 0; SODIUM 138 MEQ/L (136-147); UREA NITROGEN (BUN) 15 mg/dL (9-23)
[2016-12-08 07:14] VITALS: BP 138/85
[2016-12-08] MEDS ORDERED: CARVEDILOL12.5 MG PO (11:28)
[2016-12-08 11:34] LABS: POINT-OF-CARE METER ID UU14117124
== END 2016-12-08 14:07 | disposition designated cancer center or children's hospital (05) | DRG 871 ==
LOC: EME 12:00 → 4EAST 14:13 → EDOF 14:13 → ENRESERV 14:15 → 4EAST 16:16 → ENRESERV 12-04 10:16 → 3EAST 12-04 18:44
PROVIDERS: Emergency Medicine; Hospitalist; Internal Medicine; Internal Medicine Gastroenterology; Internal Medicine Infectious Disease
PROC: 0HBNXZZ Excision of Left Foot Skin, External Approach (ICD-10-PCS; principal; 2016-11-30)
DX: A41.02 Sepsis due to Methicillin resistant Staphylococcus aureus (principal); A41.89 Other specified sepsis; J44.1 Chronic obstructive pulmonary disease with (acute) exacerbation; J44.0 Chronic obstructive pulmonary disease with (acute) lower respiratory infection; J20.9 Acute bronchitis, unspecified; I11.0 Hypertensive heart disease with heart failure; I50.23 Acute on chronic systolic (congestive) heart failure; J96.01 Acute respiratory failure with hypoxia; E11.65 Type 2 diabetes mellitus with hyperglycemia; L84 Corns and callosities; I48.2 Chronic atrial fibrillation; D69.6 Thrombocytopenia, unspecified; I87.2 Venous insufficiency (chronic) (peripheral); E78.5 Hyperlipidemia, unspecified; D50.9 Iron deficiency anemia, unspecified; E11.621 Type 2 diabetes mellitus with foot ulcer; L97.521 Non-pressure chronic ulcer of other part of left foot limited to breakdown of skin; F17.210 Nicotine dependence, cigarettes, uncomplicated; G47.00 Insomnia, unspecified; I25.10 Atherosclerotic heart disease of native coronary artery without angina pectoris; K21.9 Gastro-esophageal reflux disease without esophagitis; I25.5 Ischemic cardiomyopathy; I27.20 Pulmonary hypertension, unspecified; I73.9 Peripheral vascular disease, unspecified; R32 Unspecified urinary incontinence; G43.909 Migraine, unspecified, not intractable, without status migrainosus; F41.9 Anxiety disorder, unspecified; F31.9 Bipolar disorder, unspecified; I45.10 Unspecified right bundle-branch block; Z96.642 Presence of left artificial hip joint; Z86.73 Personal history of transient ischemic attack (TIA), and cerebral infarction without residual deficits; Z95.1 Presence of aortocoronary bypass graft; Z95.5 Presence of coronary angioplasty implant and graft; Z86.711 Personal history of pulmonary embolism; Z86.718 Personal history of other venous thrombosis and embolism; Z79.01 Long term (current) use of anticoagulants; Z99.81 Dependence on supplemental oxygen; I25.2 Old myocardial infarction; Z91.14 Patient's other noncompliance with medication regimen; Z79.4 Long term (current) use of insulin; Z79.82 Long term (current) use of aspirin; Z88.2 Allergy status to sulfonamides
CPT/HCPCS: 36600; 71010; 73630; 76937; 80048; 80053; 80202; 81003; 82272; 82565; 82607; 82803; 82948; 83540; 83605; 83735; 83880; 84466; 84484; 85025; 85027; 85610; 85651; 86140; 87040; 87077; 87086; 87147; 87186; 87502; 87801; 93005; 93306; 94010; 94640; 94640 76; 94799; 99202; 99281; 99285; A6021; J0456; J0696; J1335; J1815; J2543; J2920; J3370; J7050; J7512

== ENCOUNTER 2017-02-21 11:19 | Inpatient (IN) | payer OTHER ==
[~2017-02-21] VITALS: Ht 198.1 cm; Wt 94.3 kg
[2017-02-21] VITALS (15 sets, daily range): BP systolic 110–149; BP diastolic 67–117
[2017-02-21 11:42] LABS: AMYLASE 58 IU/L (1-118); CHLORIDE 106 mEq/L (99-109); INTER. NORMALIZED RATIO 1.4; POTASSIUM 4.1 mEq/L (3.7-5.4)
[2017-02-21 11:43] LABS: SODIUM 140 mEq/L (136-147)
[2017-02-21 11:44] LABS: GLUCOSE 128 mg/dL (70-99); PTT 35.3 SEC (25-37)
[2017-02-21 11:47] LABS: SERUM ETHYL ALCOHOL < 10 mg/dL
[2017-02-21 11:48] LABS: CREATININE 0.7 mg/dL (0.6-1.3); GFR ESTIMATE (CALCULATED) > 59 mL/min/ (58.99-99999)
[2017-02-21 11:49] LABS: UREA NITROGEN (BUN) 10 mg/dL (9-23)
[2017-02-21 11:51] LABS: LIPASE 32 U/L (1.0-51.0)
[2017-02-21] MEDS ORDERED: KLOR-CON 1010 ME1 PO (11:51)
[2017-02-21 11:54] LABS: TROP-I INTERPRETATION NEGATIVE; TROPONIN-I < 0.01 ng/mL (0.0-0.30)
[2017-02-21] MEDS ORDERED: LASIX40 MG PO (11:54)
[2017-02-21] MEDS ORDERED: PROTONIX40 MG PO (11:55)
[2017-02-21] MEDS ORDERED: NYSTOP60 GM TP (11:57)
[2017-02-21] MEDS ORDERED: XARELTO20 MG PO (11:57)
[2017-02-21] MEDS ORDERED: COREG25 M1 PO (11:59)
[2017-02-21] MEDS ORDERED: LIPITOR40 MG PO (11:59)
[2017-02-21] MEDS ORDERED: JANUVIA25 M1 PO (12:00)
[2017-02-21] MEDS ORDERED: VASOTEC5 MG PO (12:00)
[2017-02-21] MEDS ORDERED: FORTAMET500 M1 PO (12:01)
[2017-02-21] MEDS ORDERED: ASPIR 8181 M1 PO (12:01)
[2017-02-21 12:12] LABS: BASOPHIL (%) 0.7 % (0-1); EOSINOPHIL (%) 6.2 % (0-5); EOSINOPHIL COUNT 0.4 K/uL (0-0.3); HEMATOCRIT 25.7 % (38.0-50.0); IMMATURE GRANULOCYTE (%) 0.5 % (0.0-0.7); LYMPHOCYTE (%) 14.3 % (15-42); LYMPHOCYTE COUNT 0.9 K/uL (1.0-2.8); MCH 22.4 PG (29.0-34.0); MCHC 26.5 G/DL (30.0-36.0); MCV 84.5 FL (86-99); MONOCYTE (%) 8.2 % (3-12); MONOCYTE COUNT 0.5 K/uL (0-0.8); NEUTROPHIL (%) 70.1 % (45-76); NEUTROPHIL COUNT 4.2 K/uL (1.8-6.4); NRBC (%) 0.5 /100 WBC (0-0); PLATELET COUNT 132 K/uL (156-360); RBC DIS.WIDTH-CV 20.7 % (11.8-14.6); RBC DIS.WIDTH-SD 58.4 % (39-53); RED BLOOD COUNT 3.04 M/uL (4.00-5.50)
[2017-02-21 12:13] LABS: HEMOGLOBIN 6.8 G/DL (12.5-16.6)
[2017-02-21 12:35] LABS: ANISOCYTOSIS 2+; HYPOCHROMASIA 2+; MICROCYTOSIS 1+; OVALOCYTES 2+; PLAT.SUFFICIENCY DECREASED; POIKILOCYTOSIS 2+; POLYCHROMASIA 1+; TARGET CELLS 1+
[2017-02-21 21:17] LABS: APPEARANCE CLEAR ((CLEAR)); BILIRUBIN NEGATIVE; BLOOD NEGATIVE; COLOR YELLOW ((YELLOW)); GLUCOSE (STRIP) NEGATIVE; KETONES NEGATIVE; LEUKOCYTES NEGATIVE; NITRITE NEGATIVE; PROTEIN (STRIP) 30; UCUL ADDED? NO
[2017-02-21 21:29] LABS: HDL CHOLESTEROL 11 MG/DL (Desirable>=40); LDL CHOLESTEROL 51 mg/dL (Desirable<100); NON-HDL CHOLESTEROL 62 mg/dL (Desirable<160); TOTAL CHOLESTEROL 73 mg/dL (Desirable<200); TRIGLYCERIDES 57 MG/DL (Normal: <150)
[2017-02-22] VITALS (20 sets, daily range): BP systolic 88–135; BP diastolic 53–86
[2017-02-22 07:20] LABS: Estimated Average Glucose 131 mg/dL (70-123); HEMOGLOBIN A1c (GLYCOHEMOGLOB) 6.2 % HGB (Below 5.7)
[2017-02-22 17:54] LABS: ALBUMIN 2.6 G/DL (3.2-4.8); ALKALINE PHOSPHATASE 67 IU/L (3-129); ALT (GPT) 144 IU/L (3-49); AST (GOT) 54 IU/L (2-34); CHLORIDE 107 MEQ/L (99-109); CREATININE 0.5 MG/DL (0.6-1.3); GFR ESTIMATE (CALCULATED) > 59 mL/min/ (58.99-99999); GLUCOSE 172 mg/dL (70-99); MAGNESIUM 1.5 mg/dl (1.3-2.7); PHOSPHORUS 2.2 mg/dL (2.5-4.9); POTASSIUM 3.8 MEQ/L (3.7-5.4); SODIUM 139 MEQ/L (136-147); TOTAL BILIRUBIN 0.8 MG/DL (0.0-1.0); TOTAL PROTEIN 6.3 G/DL (6.4-8.3); UREA NITROGEN (BUN) 11 mg/dL (9-23)
[2017-02-22 18:23] LABS: ANISOCYTOSIS 2+; BASOPHIL (%) 0.4 % (0-1); EOSINOPHIL (%) 5.4 % (0-5); EOSINOPHIL COUNT 0.3 K/uL (0-0.3); HEMATOCRIT 22.2 % (38.0-50.0); HEMOGLOBIN 5.9 G/DL (12.5-16.6); IMMATURE GRANULOCYTE (%) 0.4 % (0.0-0.7); LYMPHOCYTE (%) 15.2 % (15-42); LYMPHOCYTE COUNT 0.8 K/uL (1.0-2.8); MACROCYTES 1+; MCH 22.3 PG (29.0-34.0); MCHC 26.6 G/DL (30.0-36.0); MCV 83.8 FL (86-99); MICROCYTOSIS 2+; MONOCYTE (%) 9.6 % (3-12); MONOCYTE COUNT 0.5 K/uL (0-0.8); NEUTROPHIL COUNT 3.6 K/uL (1.8-6.4); NRBC (%) 0.8 /100 WBC (0-0); PLATELET COUNT 126 K/uL (156-360); POLYCHROMASIA 1+; RBC DIS.WIDTH-SD 57.1 % (39-53); RED BLOOD COUNT 2.65 M/uL (4.00-5.50); TARGET CELLS 1+; WHITE BLOOD COUNT 5.2 K/uL (4.1-10.2)
[2017-02-23] VITALS (9 sets, daily range): BP systolic 97–120; BP diastolic 60–75
[2017-02-23 08:07] LABS: TRANSFERRIN (TIBC) 309.5 mg/dL (215-380)
[2017-02-23 08:28] LABS: IMM.RETIC FRACTION 16.4 % (3-19); RETIC HGB EQUIVALENT 15.2 (28-36)
[2017-02-23 08:47] LABS: BASOPHIL (%) 0.6 % (0-1); EOSINOPHIL (%) 4.8 % (0-5); EOSINOPHIL COUNT 0.3 K/uL (0-0.3); IMMATURE GRANULOCYTE (%) 0.4 % (0.0-0.7); LYMPHOCYTE (%) 14.5 % (15-42); LYMPHOCYTE COUNT 0.8 K/uL (1.0-2.8); MONOCYTE (%) 7.6 % (3-12); MONOCYTE COUNT 0.4 K/uL (0-0.8); NEUTROPHIL (%) 72.1 % (45-76); NEUTROPHIL COUNT 3.9 K/uL (1.8-6.4); PLATELET COUNT 109 K/uL (156-360); WHITE BLOOD COUNT 5.4 K/uL (4.1-10.2)
[2017-02-23 09:01] LABS: HEMOGLOBIN 6.4 G/DL (12.5-16.6); RED BLOOD COUNT 1.46 M/uL (4.00-5.50)
[2017-02-23 12:27] LABS: HEMATOCRIT 23.6 % (38.0-50.0)
[2017-02-23 12:28] LABS: MCH 22.9 PG (29.0-34.0); MCHC 27.1 G/DL (30.0-36.0); MCV 84.6 FL (86-99)
[2017-02-23 22:33] LABS: HEMATOCRIT 24.4 % (38.0-50.0); MCV 83.6 FL (86-99)
[2017-02-23 22:34] LABS: HEMOGLOBIN 6.7 G/DL (12.5-16.6)
[2017-02-24] VITALS (7 sets, daily range): BP systolic 101–133; BP diastolic 61–75
[2017-02-24 10:02] LABS: CHLORIDE 106 MEQ/L (99-109); CREATININE 0.6 MG/DL (0.6-1.3); GFR ESTIMATE (CALCULATED) > 59 mL/min/ (58.99-99999); GLUCOSE 163 mg/dL (70-99); SODIUM 141 MEQ/L (136-147); UREA NITROGEN (BUN) 13 mg/dL (9-23)
[2017-02-24 10:32] LABS: HEMATOCRIT 27.2 % (38.0-50.0); HEMOGLOBIN 7.7 G/DL (12.5-16.6); MCH 23.5 PG (29.0-34.0); MCHC 28.3 G/DL (30.0-36.0); MCV 82.9 FL (86-99); NRBC (%) 0.5 /100 WBC (0-0); RBC DIS.WIDTH-CV 18.6 % (11.8-14.6); RBC DIS.WIDTH-SD 55.8 % (39-53); WHITE BLOOD COUNT 5.5 K/uL (4.1-10.2)
[2017-02-24 10:35] LABS: RED BLOOD COUNT 3.28 M/uL (4.00-5.50)
[2017-02-24 11:17] LABS: PLATELET COUNT 125 K/uL (156-360)
[2017-02-25 00:19] VITALS: BP 105/53
[2017-02-25 06:52] LABS: HEMATOCRIT 22.4 % (38.0-50.0); HEMOGLOBIN 7.8 G/DL (12.5-16.6); MCHC 34.8 G/DL (30.0-36.0); MCV 100.4 FL (86-99); NRBC (%) 0.4 /100 WBC (0-0); PLATELET COUNT 134 K/uL (156-360); RBC DIS.WIDTH-CV 28.1 % (11.8-14.6); RBC DIS.WIDTH-SD 56.8 % (39-53); RED BLOOD COUNT 2.23 M/uL (4.00-5.50); WHITE BLOOD COUNT 5.7 K/uL (4.1-10.2)
[2017-02-25 07:11] LABS: CHLORIDE 104 MEQ/L (99-109); CREATININE 0.6 MG/DL (0.6-1.3); GFR ESTIMATE (CALCULATED) > 59 mL/min/ (58.99-99999); GLUCOSE 146 mg/dL (70-99); POTASSIUM 4.6 MEQ/L (3.7-5.4); SODIUM 139 MEQ/L (136-147); UREA NITROGEN (BUN) 13 mg/dL (9-23)
[2017-02-25 08:00] VITALS: BP 116/94
[2017-02-25 12:17] VITALS: BP 122/60
[2017-02-25 16:14] VITALS: BP 132/68
[2017-02-25 19:41] VITALS: BP 136/87
[2017-02-25 23:57] VITALS: BP 110/67
[2017-02-26 07:05] VITALS: BP 101/54
[2017-02-26 15:33] VITALS: BP 114/64
[2017-02-27 00:14] VITALS: BP 101/66
[2017-02-27 07:49] LABS: HEMATOCRIT 26.1 % (38.0-50.0); HEMOGLOBIN 7.1 G/DL (12.5-16.6); RBC DIS.WIDTH-CV 20.1 % (11.8-14.6); RBC DIS.WIDTH-SD 59.2 % (39-53); WHITE BLOOD COUNT 5.8 K/uL (4.1-10.2)
[2017-02-27 07:50] LABS: MCH 22.7 PG (29.0-34.0); MCV 83.4 FL (86-99); RED BLOOD COUNT 3.13 M/uL (4.00-5.50)
[2017-02-27 07:51] LABS: MCHC 27.2 G/DL (30.0-36.0)
[2017-02-27 07:53] LABS: PLAT.SUFFICIENCY ADEQUATE; PLATELET CLUMPS PRESENT - PLATELET COUNTS APPEARS DECREASED
[2017-02-27 08:02] LABS: PLATELET COUNT UNABLE TO REPORT K/uL (156-360)
[2017-02-27 08:45] VITALS: BP 115/69
[2017-02-27] MEDS ORDERED: TRAZODONE HCL50 MG PO (10:45)
[2017-02-27] MEDS ORDERED: ASPIRIN EC325 MG PO (10:45)
[2017-02-27] MEDS ORDERED: FERROUS SULFAT325 MG PO (10:45)
[2017-02-27] MEDS ORDERED: SANTYL30 GM TP (10:45)
[2017-02-27] MEDS ORDERED: TRAMADOL HCL50 MG PO (10:45)
[2017-02-27] MEDS ORDERED: LASIX40 MG PO (10:45)
[2017-02-27 11:32] VITALS: BP 120/72
== END 2017-02-27 16:33 | disposition home health service (06) | DRG 41 ==
LOC: EME 11:19 → 5SOUTH 12:54 → EDOF 12:54 → ENRESERV 12:57 → 4WEST 15:10 → ENRESERV 02-22 16:35 → 5SOUTH 02-22 18:24
PROVIDERS: Emergency Medicine; Hospitalist; Internal Medicine; Internal Medicine Critical Care Medicine
PROC: 3E03317 Introduction of Other Thrombolytic into Peripheral Vein, Percutaneous Approach (ICD-10-PCS; principal; 2017-02-21)
PROC: 30233N1 Transfusion of Nonautologous Red Blood Cells into Peripheral Vein, Percutaneous Approach (ICD-10-PCS; 2017-02-22)
PROC: 0LBW0ZZ Excision of Left Foot Tendon, Open Approach (ICD-10-PCS; 2017-02-24)
DX: I63.9 Cerebral infarction, unspecified (principal); I48.0 Paroxysmal atrial fibrillation; I11.0 Hypertensive heart disease with heart failure; I50.22 Chronic systolic (congestive) heart failure; D50.9 Iron deficiency anemia, unspecified; E11.621 Type 2 diabetes mellitus with foot ulcer; L97.528 Non-pressure chronic ulcer of other part of left foot with other specified severity; L97.519 Non-pressure chronic ulcer of other part of right foot with unspecified severity; E11.51 Type 2 diabetes mellitus with diabetic peripheral angiopathy without gangrene; F05 Delirium due to known physiological condition; D69.6 Thrombocytopenia, unspecified; I25.5 Ischemic cardiomyopathy; I65.23 Occlusion and stenosis of bilateral carotid arteries; R29.709 NIHSS score 9; I25.10 Atherosclerotic heart disease of native coronary artery without angina pectoris; K21.9 Gastro-esophageal reflux disease without esophagitis; E78.5 Hyperlipidemia, unspecified; J43.9 Emphysema, unspecified; G47.00 Insomnia, unspecified; F32.9 Major depressive disorder, single episode, unspecified; F40.240 Claustrophobia; Z53.20 Procedure and treatment not carried out because of patient's decision for unspecified reasons; Z66 Do not resuscitate; F17.200 Nicotine dependence, unspecified, uncomplicated; Z96.642 Presence of left artificial hip joint; I25.2 Old myocardial infarction; Z79.01 Long term (current) use of anticoagulants; Z79.84 Long term (current) use of oral hypoglycemic drugs; Z86.711 Personal history of pulmonary embolism; Z86.73 Personal history of transient ischemic attack (TIA), and cerebral infarction without residual deficits; Z95.5 Presence of coronary angioplasty implant and graft; Z90.49 Acquired absence of other specified parts of digestive tract; Z22.322 Carrier or suspected carrier of Methicillin resistant Staphylococcus aureus
CPT/HCPCS: 70450; 70496; 70498; 71250; 73630; 80048; 80053; 80061; 81003; 82150; 82272; 82728; 82948; 83036; 83690; 83735; 84100; 84466; 84484; 85014; 85018; 85025; 85025 91; 85027; 85610; 85651; 85730; 86850; 86860; 86870; 86880; 86900; 86901; 86920; 87641; 93005; 94799; 97530 GO; 99281; 99285; G0480; J1650; J1815; J1940; J2997; J7030; P9016

== ENCOUNTER 2017-03-24 02:32 | Inpatient (IN) | payer OTHER ==
[~2017-03-24] VITALS: Ht 188 cm; Wt 100.0 kg
[~2017-03-24 02:32] MED LIST changes: +ASPIR 8181 M1 PO; +ASPIRIN EC325 MG PO; +FERROUS SULFAT325 MG PO; +SANTYL30 GM TP
[2017-03-24 03:06] LABS: CARBON DIOXIDE (BICARBONATE) 35.3 MEQ/L (20-31)
[2017-03-24 03:09] LABS: ALBUMIN 3.3 g/dL (3.2-4.8); HEMATOCRIT 35.1 % (38.0-50.0); HEMOGLOBIN 10.5 G/DL (12.5-16.6); MCH 25.7 PG (29.0-34.0); MCHC 29.9 G/DL (30.0-36.0); MCV 85.8 FL (86-99); PLATELET COUNT 134 K/uL (156-360); RBC DIS.WIDTH-CV 21.9 % (11.8-14.6); RBC DIS.WIDTH-SD 57.2 % (39-53); RED BLOOD COUNT 4.09 M/uL (4.00-5.50)
[2017-03-24 03:10] LABS: CHLORIDE 96 mEq/L (99-109); POTASSIUM 2.9 mEq/L (3.7-5.4); SODIUM 136 mEq/L (136-147)
[2017-03-24 03:12] LABS: GLUCOSE 171 mg/dL (70-99); TOTAL PROTEIN 8.4 g/dL (6.4-8.3)
[2017-03-24 03:13] LABS: INTER. NORMALIZED RATIO 1.5
[2017-03-24 03:14] LABS: TOTAL BILIRUBIN 1.9 mg/dL (0.0-1.0)
[2017-03-24 03:15] LABS: ALKALINE PHOSPHATASE 77 IU/L (3-129)
[2017-03-24 03:16] LABS: GFR ESTIMATE (CALCULATED) > 59 mL/min/ (58.99-99999); PTT 36.5 SEC (25-37)
[2017-03-24 03:17] LABS: AST (GOT) 14 IU/L (2-34); UREA NITROGEN (BUN) 16 mg/dL (9-23)
[2017-03-24 03:19] LABS: ALT (GPT) 7 IU/L (3-49); LIPASE 24 U/L (1.0-51.0)
[2017-03-24 03:22] LABS: TROP-I INTERPRETATION NEGATIVE; TROPONIN-I < 0.01 ng/mL (0.0-0.30)
[2017-03-24 05:34] LABS: APPEARANCE CLEAR ((CLEAR)); BILIRUBIN NEGATIVE; BLOOD NEGATIVE; COLOR AMBER ((YELLOW)); GLUCOSE (STRIP) NEGATIVE; KETONES NEGATIVE; LEUKOCYTES NEGATIVE; NITRITE NEGATIVE; PROTEIN (STRIP) 30; SPECIFIC GRAVITY 1.018 (1.000-1.030); UCUL ADDED? NO
[2017-03-24 09:31] LABS: TROP-I INTERPRETATION NEGATIVE; TROPONIN-I < 0.01 ng/mL (0.0-0.30)
[2017-03-24] MEDS ORDERED: KLOR-CON 1010 ME1 PO (11:25)
[2017-03-24] MEDS ORDERED: PROTONIX40 MG PO (11:25)
[2017-03-24] MEDS ORDERED: JANUVIA25 M1 PO (11:25)
[2017-03-24] MEDS ORDERED: VASOTEC5 MG PO (11:25)
[2017-03-24] MEDS ORDERED: NYSTOP60 GM TP (11:25)
[2017-03-24] MEDS ORDERED: METFORMIN HCL1000 MG PO (11:25)
[2017-03-24] MEDS ORDERED: COREG12.5 M1 PO (11:25)
[2017-03-24] MEDS ORDERED: LIPITOR40 MG PO (11:25)
[2017-03-24 11:27] LABS: BASE EXCESS 5.5 mEq/L (-3 to +3); BICARBONATE 30.5 mEq/L (22-26); CARBOXY HGB 3.2 % (0-5); COMMENTS - BLOOD GASES A+C+; METHEMOGLOBIN 0.8 % (0-1.5); PCO2 46 mm Hg (35-45); PO2 79 mm Hg (80-100); SITE RR; pH 7.43 (7.35-7.45)
[2017-03-24 11:28] LABS: DEVICE NC; O2 FLOW 2 L/MIN; TOTAL RESP RATE 15 resp/min
[2017-03-24] MEDS ORDERED: FERROUS SULFAT325 MG PO (11:30)
[2017-03-24] MEDS ORDERED: ASPIRIN EC325 MG PO (11:31)
[2017-03-24] MEDS ORDERED: TRAMADOL HCL50 MG PO (11:32)
[2017-03-24] MEDS ORDERED: TRAZODONE HCL50 MG PO (11:32)
[2017-03-24] MEDS ORDERED: SANTYL30 GM TP (11:32)
[2017-03-24] MEDS ORDERED: LASIX40 MG PO (11:33)
[2017-03-24] MEDS ORDERED: NITROSTAT0.4 MG SL (12:55)
[2017-03-24] MEDS ORDERED: CYANOCOBALAM1000 MCG PO (12:57)
[2017-03-24] MEDS ORDERED: TYLENOL REGULA325 MG PO (12:57)
[2017-03-24] MEDS ORDERED: REFRESH TEARS15 ML BOTH EYES (12:57)
[2017-03-24] MEDS ORDERED: ADVAIR HFA120 INHALA IH (12:57)
[2017-03-24 14:27] VITALS: BP 136/80
[2017-03-24 14:44] VITALS: BP 136/80
[2017-03-24 15:23] LABS: TROP-I INTERPRETATION NEGATIVE; TROPONIN-I 0.02 ng/mL (0.0-0.30)
[2017-03-24 16:03] VITALS: BP 118/63
[2017-03-24 19:00] VITALS: BP 107/56
[2017-03-24 20:40] VITALS: BP 107/78
[2017-03-24 23:50] VITALS: BP 92/59
[2017-03-25] VITALS (7 sets, daily range): BP systolic 93–127; BP diastolic 55–78
[2017-03-25 05:55] LABS: TROP-I INTERPRETATION NEGATIVE; TROPONIN-I 0.01 ng/mL (0.0-0.30)
[2017-03-25 06:02] LABS: CHLORIDE 105 MEQ/L (99-109); CREATININE 0.6 MG/DL (0.6-1.3); GFR ESTIMATE (CALCULATED) > 59 mL/min/ (58.99-99999); POTASSIUM 2.9 MEQ/L (3.7-5.4); SODIUM 140 MEQ/L (136-147); UREA NITROGEN (BUN) 16 mg/dL (9-23)
[2017-03-25 06:03] LABS: GLUCOSE 110 mg/dL (70-99)
[2017-03-25 07:03] LABS: HEMATOCRIT 22.9 % (38.0-50.0); MCHC 34.9 G/DL (30.0-36.0); RBC DIS.WIDTH-CV 25.5 % (11.8-14.6); RBC DIS.WIDTH-SD 55.9 % (39-53); WHITE BLOOD COUNT 9.1 K/uL (4.1-10.2)
[2017-03-25 07:10] LABS: MCH 33.6 PG (29.0-34.0); MCV 96.2 FL (86-99); RED BLOOD COUNT 2.38 M/uL (4.00-5.50)
[2017-03-25 07:34] LABS: HEMATOLOGY COMMENT 1 SN; PLAT.SUFFICIENCY DECREASED
[2017-03-25 07:42] LABS: PLATELET COUNT 76 K/uL (156-360)
[2017-03-25 14:13] LABS: HEMOGLOBIN 7.4 G/DL (12.5-16.6); MCH 27.3 PG (29.0-34.0); MCHC 29.6 G/DL (30.0-36.0); MCV 92.3 FL (86-99); PLATELET COUNT 80 K/uL (156-360); RBC DIS.WIDTH-CV 23.8 % (11.8-14.6); RED BLOOD COUNT 2.71 M/uL (4.00-5.50); WHITE BLOOD COUNT 7.7 K/uL (4.1-10.2)
[2017-03-25 14:31] LABS: IRON 12 MCG/DL (35-150); TRANSFERRIN (TIBC) 235.6 mg/dL (215-380); TRANSFERRIN SATUR. 5 % (20-55)
[2017-03-25 14:49] LABS: FERRITIN 67 NG/ML (22-322)
[2017-03-25 14:57] LABS: INTER. NORMALIZED RATIO 1.5
[2017-03-25 15:00] LABS: PTT 41.1 SEC (25-37)
[2017-03-25 21:13] LABS: HEMATOCRIT 24.6 % (38.0-50.0); HEMOGLOBIN 7.9 G/DL (12.5-16.6); MCH 31.1 PG (29.0-34.0); MCHC 32.1 G/DL (30.0-36.0); MCV 96.9 FL (86-99); PLATELET COUNT 79 K/uL (156-360); RBC DIS.WIDTH-CV 25.7 % (11.8-14.6); RED BLOOD COUNT 2.54 M/uL (4.00-5.50); WHITE BLOOD COUNT 7.9 K/uL (4.1-10.2)
[2017-03-26] VITALS (8 sets, daily range): BP systolic 97–123; BP diastolic 58–78
[2017-03-26 05:46] LABS: BASOPHIL (%) 0.3 % (0-1); EOSINOPHIL COUNT 0.2 K/uL (0-0.3); HEMOGLOBIN 8.8 G/DL (12.5-16.6); IMMATURE GRANULOCYTE (%) 0.9 % (0.0-0.7); LYMPHOCYTE (%) 8.5 % (15-42); LYMPHOCYTE COUNT 0.6 K/uL (1.0-2.8); MCH 27.6 PG (29.0-34.0); MCHC 30.3 G/DL (30.0-36.0); MONOCYTE (%) 7.4 % (3-12); MONOCYTE COUNT 0.6 K/uL (0-0.8); NEUTROPHIL (%) 80.9 % (45-76); NEUTROPHIL COUNT 6.1 K/uL (1.8-6.4); RBC DIS.WIDTH-CV 22.3 % (11.8-14.6); RBC DIS.WIDTH-SD 56.2 % (39-53); WHITE BLOOD COUNT 7.6 K/uL (4.1-10.2)
[2017-03-26 05:49] LABS: MCV 90.9 FL (86-99); RED BLOOD COUNT 3.19 M/uL (4.00-5.50)
[2017-03-26 05:54] LABS: CHLORIDE 103 MEQ/L (99-109); CREATININE 0.6 MG/DL (0.6-1.3); GFR ESTIMATE (CALCULATED) > 59 mL/min/ (58.99-99999); GLUCOSE 113 mg/dL (70-99); SODIUM 137 MEQ/L (136-147); UREA NITROGEN (BUN) 19 mg/dL (9-23)
[2017-03-26 05:56] LABS: POTASSIUM 5.2 MEQ/L (3.7-5.4)
[2017-03-26 05:57] LABS: ABS NEUTROPHIL COUNT 6.6; ANISOCYTOSIS 1+; ATYPICAL LYMPHOCYTE 1.7 %; BAND NEUTROPHILS 2.6 % (0-8.0); BASOPHILS 0.9 %; EOSINOPHIL ABS CT 0.2; EOSINOPHILS 2.6 % (0-5.0); LYMPHOCYTES 6.9 % (15.0-45.0); MONOCYTES 0.9 % (0-9.0); OVALOCYTES 1+; PLAT.SUFFICIENCY DECREASED; PLATELET COUNT 86 K/uL (156-360); POIKILOCYTOSIS 1+; SEG.NEUTROPHILS 84.4 % (46.0-76.0); SMUDGE CELLS 1.7
[2017-03-26 13:29] LABS: HEMOGLOBIN 8.9 G/DL (12.5-16.6); MCH 29.5 PG (29.0-34.0); MCHC 31.8 G/DL (30.0-36.0); MCV 92.7 FL (86-99); PLATELET COUNT 79 K/uL (156-360); RBC DIS.WIDTH-CV 23.1 % (11.8-14.6); RBC DIS.WIDTH-SD 57.1 % (39-53); RED BLOOD COUNT 3.02 M/uL (4.00-5.50); WHITE BLOOD COUNT 7.4 K/uL (4.1-10.2)
[2017-03-26 20:48] LABS: HEMATOCRIT 25.8 % (38.0-50.0); HEMOGLOBIN 8.6 G/DL (12.5-16.6); MCH 30.9 PG (29.0-34.0); MCHC 33.3 G/DL (30.0-36.0); MCV 92.8 FL (86-99); PLATELET COUNT 83 K/uL (156-360); RBC DIS.WIDTH-SD 55.5 % (39-53); RED BLOOD COUNT 2.78 M/uL (4.00-5.50)
[2017-03-27] VITALS (7 sets, daily range): BP systolic 106–136; BP diastolic 67–98
[2017-03-27 07:12] LABS: IMM.RETIC FRACTION 34.4 % (3-19); RETIC HGB EQUIVALENT 18.6 (28-36)
[2017-03-27 07:14] LABS: BASOPHIL (%) 0.5 % (0-1); EOSINOPHIL (%) 2.2 % (0-5); EOSINOPHIL COUNT 0.1 K/uL (0-0.3); HEMATOCRIT 23.3 % (38.0-50.0); HEMOGLOBIN 8.6 G/DL (12.5-16.6); IMMATURE GRANULOCYTE (%) 0.5 % (0.0-0.7); LYMPHOCYTE (%) 11.9 % (15-42); LYMPHOCYTE COUNT 0.7 K/uL (1.0-2.8); MCH 34.4 PG (29.0-34.0); MCHC 36.9 G/DL (30.0-36.0); MCV 93.2 FL (86-99); MONOCYTE (%) 7.5 % (3-12); MONOCYTE COUNT 0.4 K/uL (0-0.8); NEUTROPHIL (%) 77.4 % (45-76); NEUTROPHIL COUNT 4.6 K/uL (1.8-6.4); RBC DIS.WIDTH-CV 22.5 % (11.8-14.6); RBC DIS.WIDTH-SD 56.8 % (39-53); RETICULOCYTE COUNT 0.9 % (0.5-1.8); WHITE BLOOD COUNT 5.9 K/uL (4.1-10.2)
[2017-03-27 07:50] LABS: ANISOCYTOSIS 3+; HYPOCHROMASIA 1+; MACROCYTES 1+; OVALOCYTES 2+; PLAT.SUFFICIENCY DECREASED; PLATELET COUNT 93 K/uL (156-360); POIKILOCYTOSIS 1+; POLYCHROMASIA 2+; TARGET CELLS 1+
[2017-03-27 09:07] LABS: ERTH.SED.RATE 28 MM/HR (0-20)
[2017-03-27 09:09] LABS: CHLORIDE 101 MEQ/L (99-109); CREATININE 0.6 MG/DL (0.6-1.3); GFR ESTIMATE (CALCULATED) > 59 mL/min/ (58.99-99999); GLUCOSE 135 mg/dL (70-99); POTASSIUM 4.6 MEQ/L (3.7-5.4); SODIUM 139 MEQ/L (136-147); UREA NITROGEN (BUN) 16 mg/dL (9-23)
[2017-03-27 12:48] LABS: HEMATOCRIT 26.5 % (38.0-50.0); HEMOGLOBIN 8.4 G/DL (12.5-16.6); MCH 29.5 PG (29.0-34.0); MCHC 31.7 G/DL (30.0-36.0); PLATELET COUNT 95 K/uL (156-360); RBC DIS.WIDTH-CV 23.5 % (11.8-14.6); RBC DIS.WIDTH-SD 56.9 % (39-53); RED BLOOD COUNT 2.85 M/uL (4.00-5.50); WHITE BLOOD COUNT 6.3 K/uL (4.1-10.2)
[2017-03-27 21:03] LABS: HEMATOCRIT 28.1 % (38.0-50.0); HEMOGLOBIN 8.4 G/DL (12.5-16.6); MCH 26.8 PG (29.0-34.0); MCHC 29.9 G/DL (30.0-36.0); MCV 89.8 FL (86-99); PLATELET COUNT 94 K/uL (156-360); RBC DIS.WIDTH-CV 22.7 % (11.8-14.6); RBC DIS.WIDTH-SD 55.9 % (39-53); RED BLOOD COUNT 3.13 M/uL (4.00-5.50); WHITE BLOOD COUNT 6.1 K/uL (4.1-10.2)
[2017-03-28 04:18] VITALS: BP 122/79
[2017-03-28 06:44] LABS: BASOPHIL (%) 0.6 % (0-1); EOSINOPHIL (%) 3.5 % (0-5); EOSINOPHIL COUNT 0.2 K/uL (0-0.3); HEMOGLOBIN 8.3 G/DL (12.5-16.6); IMMATURE GRANULOCYTE (%) 0.4 % (0.0-0.7); LYMPHOCYTE (%) 14.7 % (15-42); LYMPHOCYTE COUNT 0.8 K/uL (1.0-2.8); MONOCYTE (%) 8.8 % (3-12); MONOCYTE COUNT 0.5 K/uL (0-0.8); NEUTROPHIL COUNT 3.9 K/uL (1.8-6.4); PLATELET COUNT 95 K/uL (156-360); RBC DIS.WIDTH-CV 24.8 % (11.8-14.6); RBC DIS.WIDTH-SD 57.9 % (39-53); WHITE BLOOD COUNT 5.4 K/uL (4.1-10.2)
[2017-03-28 06:51] LABS: MCH 34.4 PG (29.0-34.0); MCHC 36.1 G/DL (30.0-36.0); MCV 95.4 FL (86-99); RED BLOOD COUNT 2.41 M/uL (4.00-5.50)
[2017-03-28 06:54] LABS: CHLORIDE 99 MEQ/L (99-109); CREATININE 0.5 MG/DL (0.6-1.3); GFR ESTIMATE (CALCULATED) > 59 mL/min/ (58.99-99999); GLUCOSE 129 mg/dL (70-99); POTASSIUM 4.4 MEQ/L (3.7-5.4); SODIUM 136 MEQ/L (136-147); UREA NITROGEN (BUN) 12 mg/dL (9-23)
[2017-03-28 08:19] VITALS: BP 155/75
[2017-03-28 12:00] VITALS: BP 113/82
[2017-03-28 16:00] VITALS: BP 122/71
[2017-03-28 19:51] VITALS: BP 126/81
[2017-03-28 23:41] VITALS: BP 100/52
[2017-03-29 04:00] VITALS: BP 118/68
[2017-03-29 06:25] LABS: BASOPHIL (%) 0.7 % (0-1); EOSINOPHIL (%) 4.1 % (0-5); EOSINOPHIL COUNT 0.2 K/uL (0-0.3); HEMATOCRIT 26.1 % (38.0-50.0); HEMOGLOBIN 8.8 G/DL (12.5-16.6); IMMATURE GRANULOCYTE (%) 0.7 % (0.0-0.7); LYMPHOCYTE (%) 13.8 % (15-42); LYMPHOCYTE COUNT 0.8 K/uL (1.0-2.8); MCH 30.6 PG (29.0-34.0); MCHC 33.7 G/DL (30.0-36.0); MONOCYTE (%) 8.4 % (3-12); MONOCYTE COUNT 0.5 K/uL (0-0.8); NEUTROPHIL (%) 72.3 % (45-76); NEUTROPHIL COUNT 4.2 K/uL (1.8-6.4); PLATELET COUNT 118 K/uL (156-360); RBC DIS.WIDTH-CV 22.6 % (11.8-14.6); RBC DIS.WIDTH-SD 56.6 % (39-53); RED BLOOD COUNT 2.88 M/uL (4.00-5.50); WHITE BLOOD COUNT 5.9 K/uL (4.1-10.2)
[2017-03-29 06:31] LABS: CHLORIDE 97 MEQ/L (99-109); CREATININE 0.5 MG/DL (0.6-1.3); GFR ESTIMATE (CALCULATED) > 59 mL/min/ (58.99-99999); GLUCOSE 103 mg/dL (70-99); POTASSIUM 4.2 MEQ/L (3.7-5.4); SODIUM 134 MEQ/L (136-147); UREA NITROGEN (BUN) 13 mg/dL (9-23)
[2017-03-29 06:45] LABS: MCV 90.6 FL (86-99)
[2017-03-29 08:27] LABS: C-REACTIVE PROTEIN 117.3 MG/L (0-10)
[2017-03-29 09:06] VITALS: BP 95/61
[2017-03-29 12:55] VITALS: BP 110/67
[2017-03-29 18:47] VITALS: BP 106/68
[2017-03-29 22:28] VITALS: BP 110/70
[2017-03-30 02:35] VITALS: BP 109/70
[2017-03-30 05:55] LABS: BASOPHIL (%) 0.7 % (0-1); EOSINOPHIL (%) 3.6 % (0-5); EOSINOPHIL COUNT 0.2 K/uL (0-0.3); HEMATOCRIT 24.1 % (38.0-50.0); HEMOGLOBIN 8.3 G/DL (12.5-16.6); IMMATURE GRANULOCYTE (%) 0.8 % (0.0-0.7); LYMPHOCYTE (%) 13.1 % (15-42); LYMPHOCYTE COUNT 0.8 K/uL (1.0-2.8); MCH 31.4 PG (29.0-34.0); MCHC 34.4 G/DL (30.0-36.0); MCV 91.3 FL (86-99); MONOCYTE (%) 8.8 % (3-12); MONOCYTE COUNT 0.5 K/uL (0-0.8); NEUTROPHIL COUNT 4.4 K/uL (1.8-6.4); PLATELET COUNT 131 K/uL (156-360); RBC DIS.WIDTH-CV 22.9 % (11.8-14.6); RBC DIS.WIDTH-SD 56.5 % (39-53); RED BLOOD COUNT 2.64 M/uL (4.00-5.50); WHITE BLOOD COUNT 6.1 K/uL (4.1-10.2)
[2017-03-30 06:12] LABS: CHLORIDE 98 MEQ/L (99-109); CREATININE 0.6 MG/DL (0.6-1.3); GFR ESTIMATE (CALCULATED) > 59 mL/min/ (58.99-99999); POTASSIUM 4.3 MEQ/L (3.7-5.4); SODIUM 134 MEQ/L (136-147); UREA NITROGEN (BUN) 15 mg/dL (9-23)
[2017-03-30 06:14] LABS: GLUCOSE 172 mg/dL (70-99)
[2017-03-30 08:09] VITALS: BP 122/57
[2017-03-30 11:10] VITALS: BP 91/51
[2017-03-30 17:13] VITALS: BP 111/57
[2017-03-30 20:07] VITALS: BP 123/64
[2017-03-30 23:27] VITALS: BP 110/68
[2017-03-31 03:19] VITALS: BP 124/77
[2017-03-31 05:12] LABS: BASOPHIL (%) 0.6 % (0-1); EOSINOPHIL (%) 3.8 % (0-5); EOSINOPHIL COUNT 0.2 K/uL (0-0.3); HEMATOCRIT 23.9 % (38.0-50.0); IMMATURE GRANULOCYTE (%) 0.8 % (0.0-0.7); LYMPHOCYTE (%) 13.1 % (15-42); LYMPHOCYTE COUNT 0.7 K/uL (1.0-2.8); MCH 31.4 PG (29.0-34.0); MCHC 33.5 G/DL (30.0-36.0); MCV 93.7 FL (86-99); MONOCYTE (%) 8.4 % (3-12); MONOCYTE COUNT 0.4 K/uL (0-0.8); NEUTROPHIL (%) 73.3 % (45-76); NEUTROPHIL COUNT 3.9 K/uL (1.8-6.4); PLATELET COUNT 133 K/uL (156-360); RBC DIS.WIDTH-CV 24.5 % (11.8-14.6); RBC DIS.WIDTH-SD 57.1 % (39-53); RED BLOOD COUNT 2.55 M/uL (4.00-5.50); WHITE BLOOD COUNT 5.3 K/uL (4.1-10.2)
[2017-03-31 08:00] VITALS: BP 129/70
[2017-03-31 12:02] VITALS: BP 128/68
[2017-03-31 19:58] VITALS: BP 129/70
[2017-03-31 23:55] VITALS: BP 127/70
[2017-04-01 03:30] VITALS: BP 139/96
[2017-04-01 05:24] LABS: HEMATOCRIT 27.3 % (38.0-50.0); HEMOGLOBIN 8.5 G/DL (12.5-16.6); MCH 28.1 PG (29.0-34.0); MCHC 31.1 G/DL (30.0-36.0); MCV 90.4 FL (86-99); PLATELET COUNT 157 K/uL (156-360); RBC DIS.WIDTH-CV 23.4 % (11.8-14.6); RBC DIS.WIDTH-SD 57.2 % (39-53); RED BLOOD COUNT 3.02 M/uL (4.00-5.50); WHITE BLOOD COUNT 6.2 K/uL (4.1-10.2)
[2017-04-01 09:00] VITALS: BP 115/65
[2017-04-01 12:18] VITALS: BP 92/57
[2017-04-01 16:13] VITALS: BP 91/55
[2017-04-01 16:38] LABS: BASE EXCESS 7.2 mEq/L (-3 to +3); CARBOXY HGB 2.5 % (0-5); COMMENTS - BLOOD GASES +C; DEVICE NC; METHEMOGLOBIN 1.6 % (0-1.5); O2 FLOW 2 L/MIN; PCO2 46 mm Hg (35-45); PO2 84 mm Hg (80-100); SITE RR +A; TOTAL RESP RATE 16 resp/min; pH 7.45 (7.35-7.45)
[2017-04-01 17:09] VITALS: BP 113/65
[2017-04-01 20:25] VITALS: BP 108/63
[2017-04-02] VITALS (8 sets, daily range): BP systolic 98–140; BP diastolic 52–86
[2017-04-02 06:53] LABS: BASOPHIL (%) 0.3 % (0-1); EOSINOPHIL (%) 2.1 % (0-5); EOSINOPHIL COUNT 0.2 K/uL (0-0.3); HEMATOCRIT 23.3 % (38.0-50.0); HEMOGLOBIN 8.1 G/DL (12.5-16.6); IMMATURE GRANULOCYTE (%) 0.5 % (0.0-0.7); LYMPHOCYTE (%) 8.8 % (15-42); LYMPHOCYTE COUNT 0.7 K/uL (1.0-2.8); MCH 31.8 PG (29.0-34.0); MCHC 34.8 G/DL (30.0-36.0); MCV 91.4 FL (86-99); MONOCYTE (%) 5.7 % (3-12); MONOCYTE COUNT 0.5 K/uL (0-0.8); NEUTROPHIL (%) 82.6 % (45-76); NEUTROPHIL COUNT 6.5 K/uL (1.8-6.4); PLATELET COUNT 171 K/uL (156-360); RBC DIS.WIDTH-CV 23.4 % (11.8-14.6); RBC DIS.WIDTH-SD 56.5 % (39-53); RED BLOOD COUNT 2.55 M/uL (4.00-5.50); WHITE BLOOD COUNT 7.9 K/uL (4.1-10.2)
[2017-04-02 07:12] LABS: CHLORIDE 101 MEQ/L (99-109); CREATININE 0.5 MG/DL (0.6-1.3); GFR ESTIMATE (CALCULATED) > 59 mL/min/ (58.99-99999); GLUCOSE 133 mg/dL (70-99); SODIUM 137 MEQ/L (136-147); UREA NITROGEN (BUN) 17 mg/dL (9-23)
[2017-04-03] VITALS (10 sets, daily range): BP systolic 103–140; BP diastolic 58–86
[2017-04-03 06:49] LABS: BASOPHIL (%) 0.4 % (0-1); EOSINOPHIL (%) 1.2 % (0-5); EOSINOPHIL COUNT 0.1 K/uL (0-0.3); HEMATOCRIT 23.2 % (38.0-50.0); HEMOGLOBIN 7.8 G/DL (12.5-16.6); IMMATURE GRANULOCYTE (%) 0.7 % (0.0-0.7); LYMPHOCYTE (%) 9.5 % (15-42); LYMPHOCYTE COUNT 0.9 K/uL (1.0-2.8); MCH 30.6 PG (29.0-34.0); MCHC 33.6 G/DL (30.0-36.0); MONOCYTE (%) 7.4 % (3-12); MONOCYTE COUNT 0.7 K/uL (0-0.8); NEUTROPHIL (%) 80.8 % (45-76); NEUTROPHIL COUNT 7.4 K/uL (1.8-6.4); PLATELET COUNT 195 K/uL (156-360); RBC DIS.WIDTH-CV 23.7 % (11.8-14.6); RBC DIS.WIDTH-SD 56.5 % (39-53); RED BLOOD COUNT 2.55 M/uL (4.00-5.50); WHITE BLOOD COUNT 9.2 K/uL (4.1-10.2)
[2017-04-03 07:49] LABS: CHLORIDE 100 MEQ/L (99-109); CREATININE 0.5 MG/DL (0.6-1.3); GFR ESTIMATE (CALCULATED) > 59 mL/min/ (58.99-99999); GLUCOSE 129 mg/dL (70-99); POTASSIUM 4.1 MEQ/L (3.7-5.4); SODIUM 135 MEQ/L (136-147); UREA NITROGEN (BUN) 15 mg/dL (9-23)
[2017-04-04 04:20] VITALS: BP 113/78
[2017-04-04 04:54] LABS: BASOPHIL (%) 0.4 % (0-1); EOSINOPHIL (%) 2.8 % (0-5); EOSINOPHIL COUNT 0.2 K/uL (0-0.3); HEMATOCRIT 23.7 % (38.0-50.0); HEMOGLOBIN 8.3 G/DL (12.5-16.6); IMMATURE GRANULOCYTE (%) 0.5 % (0.0-0.7); LYMPHOCYTE COUNT 0.8 K/uL (1.0-2.8); MCV 91.5 FL (86-99); MONOCYTE (%) 7.8 % (3-12); MONOCYTE COUNT 0.6 K/uL (0-0.8); NEUTROPHIL (%) 78.5 % (45-76); NEUTROPHIL COUNT 5.9 K/uL (1.8-6.4); PLATELET COUNT 194 K/uL (156-360); RBC DIS.WIDTH-CV 23.4 % (11.8-14.6); RED BLOOD COUNT 2.59 M/uL (4.00-5.50); WHITE BLOOD COUNT 7.5 K/uL (4.1-10.2)
[2017-04-04 05:07] LABS: ALBUMIN 2.4 g/dL (3.2-4.8); CHLORIDE 102 mEq/L (99-109); POTASSIUM 4.2 mEq/L (3.7-5.4); SODIUM 138 mEq/L (136-147)
[2017-04-04 05:09] LABS: GLUCOSE 123 mg/dL (70-99)
[2017-04-04 05:10] LABS: TOTAL PROTEIN 6.3 g/dL (6.4-8.3)
[2017-04-04 05:11] LABS: TOTAL BILIRUBIN 1.1 mg/dL (0.0-1.0)
[2017-04-04 05:13] LABS: ALKALINE PHOSPHATASE 90 IU/L (3-129); CREATININE 0.6 mg/dL (0.6-1.3); GFR ESTIMATE (CALCULATED) > 59 mL/min/ (58.99-99999)
[2017-04-04 05:14] LABS: UREA NITROGEN (BUN) 14 mg/dL (9-23)
[2017-04-04 05:15] LABS: AST (GOT) 17 IU/L (2-34)
[2017-04-04 05:16] LABS: ALT (GPT) 10 IU/L (3-49)
[2017-04-04 09:00] VITALS: BP 105/64
[2017-04-04 12:00] VITALS: BP 113/69
[2017-04-04 16:00] VITALS: BP 109/72
[2017-04-04 20:30] VITALS: BP 128/74
[2017-04-05 00:06] VITALS: BP 132/98
[2017-04-05 03:37] VITALS: BP 143/89
[2017-04-05 05:00] LABS: BASOPHIL (%) 0.5 % (0-1); EOSINOPHIL (%) 2.1 % (0-5); EOSINOPHIL COUNT 0.2 K/uL (0-0.3); HEMATOCRIT 23.6 % (38.0-50.0); HEMOGLOBIN 8.5 G/DL (12.5-16.6); IMMATURE GRANULOCYTE (%) 0.5 % (0.0-0.7); LYMPHOCYTE (%) 9.9 % (15-42); LYMPHOCYTE COUNT 0.8 K/uL (1.0-2.8); MCH 32.6 PG (29.0-34.0); MCV 90.4 FL (86-99); MONOCYTE COUNT 0.6 K/uL (0-0.8); NEUTROPHIL COUNT 6.1 K/uL (1.8-6.4); PLATELET COUNT 226 K/uL (156-360); RBC DIS.WIDTH-CV 22.9 % (11.8-14.6); RBC DIS.WIDTH-SD 55.4 % (39-53); RED BLOOD COUNT 2.61 M/uL (4.00-5.50); WHITE BLOOD COUNT 7.7 K/uL (4.1-10.2)
[2017-04-05 05:04] LABS: ALBUMIN 2.6 g/dL (3.2-4.8)
[2017-04-05 05:05] LABS: CHLORIDE 102 mEq/L (99-109); POTASSIUM 4.4 mEq/L (3.7-5.4); SODIUM 136 mEq/L (136-147)
[2017-04-05 05:07] LABS: GLUCOSE 128 mg/dL (70-99); TOTAL PROTEIN 6.8 g/dL (6.4-8.3)
[2017-04-05 05:09] LABS: TOTAL BILIRUBIN 1.1 mg/dL (0.0-1.0)
[2017-04-05 05:10] LABS: ALKALINE PHOSPHATASE 104 IU/L (3-129)
[2017-04-05 05:11] LABS: CREATININE 0.7 mg/dL (0.6-1.3); GFR ESTIMATE (CALCULATED) > 59 mL/min/ (58.99-99999)
[2017-04-05 05:12] LABS: AST (GOT) 21 IU/L (2-34); UREA NITROGEN (BUN) 14 mg/dL (9-23)
[2017-04-05 05:13] LABS: ALT (GPT) 12 IU/L (3-49)
[2017-04-05 10:33] LABS: MAGNESIUM 1.5 mg/dL (1.3-2.7)
[2017-04-05] MEDS ORDERED: OXYCODONE HCL5 MG PO (14:08)
[2017-04-05] MEDS ORDERED: TAMSULOSIN HCL0.4 MG PO (14:08)
[2017-04-05] MEDS ORDERED: NOVOLOG 10100 UNITS/ SC (14:08)
[2017-04-05] MEDS ORDERED: BISACODYL5 MG PO (14:08)
[2017-04-05] MEDS ORDERED: CARVEDILOL6.25 MG PO (14:08)
[2017-04-05] MEDS ORDERED: DUONEB 2.5-0.5 M3 ML AEROSOL (14:08)
[2017-04-05] MEDS ORDERED: NICOTINE PATCH1 EAC2 TD (14:08)
[2017-04-05] MEDS ORDERED: POLYETHYLENE GL17 GM PO (14:08)
[2017-04-05] MEDS ORDERED: XARELTO20 MG PO (14:08)
[2017-04-05] MEDS ORDERED: MORPHINE SULFAT15 M1 PO (14:08)
[2017-04-05] MEDS ORDERED: FERROUS SULFAT325 MG PO (14:08)
[2017-04-05] MEDS ORDERED: CEFTRIAXONE2 G1 IV (14:08)
[2017-04-05] MEDS ORDERED: LASIX20 MG PO (14:25)
[2017-04-05 15:59] VITALS: BP 126/68
== END 2017-04-05 16:45 | DRG 640 ==
LOC: EME → EDBD 02:32 → EDOF 07:48 → 4EAST 07:48 → ENRESERV 07:55 → 4EAST 13:42 → ENPENDDIS 04-05 → 4EAST 04-05 16:45
PROVIDERS: Emergency Medicine; Hospitalist; Internal Medicine; Internal Medicine Cardiovascular Disease; Internal Medicine Infectious Disease; Specialist
PROC: 30233N1 Transfusion of Nonautologous Red Blood Cells into Peripheral Vein, Percutaneous Approach (ICD-10-PCS; principal; 2017-03-25)
DX: E87.6 Hypokalemia (principal); D69.6 Thrombocytopenia, unspecified; D64.9 Anemia, unspecified; J18.9 Pneumonia, unspecified organism; I27.20 Pulmonary hypertension, unspecified; J96.11 Chronic respiratory failure with hypoxia; F41.9 Anxiety disorder, unspecified; J96.12 Chronic respiratory failure with hypercapnia; I89.0 Lymphedema, not elsewhere classified; I48.2 Chronic atrial fibrillation; I73.9 Peripheral vascular disease, unspecified; E11.51 Type 2 diabetes mellitus with diabetic peripheral angiopathy without gangrene; R78.81 Bacteremia; E78.5 Hyperlipidemia, unspecified; R33.8 Other retention of urine; I50.23 Acute on chronic systolic (congestive) heart failure; K21.9 Gastro-esophageal reflux disease without esophagitis; N40.1 Benign prostatic hyperplasia with lower urinary tract symptoms; F17.210 Nicotine dependence, cigarettes, uncomplicated; B95.1 Streptococcus, group B, as the cause of diseases classified elsewhere; K92.1 Melena; I25.10 Atherosclerotic heart disease of native coronary artery without angina pectoris; I11.0 Hypertensive heart disease with heart failure; G89.29 Other chronic pain; E11.628 Type 2 diabetes mellitus with other skin complications; N39.0 Urinary tract infection, site not specified; E11.69 Type 2 diabetes mellitus with other specified complication; L97.529 Non-pressure chronic ulcer of other part of left foot with unspecified severity; N31.2 Flaccid neuropathic bladder, not elsewhere classified; M86.9 Osteomyelitis, unspecified; I25.5 Ischemic cardiomyopathy; I95.9 Hypotension, unspecified; K29.70 Gastritis, unspecified, without bleeding; E11.42 Type 2 diabetes mellitus with diabetic polyneuropathy; E11.621 Type 2 diabetes mellitus with foot ulcer; Z51.5 Encounter for palliative care; Z66 Do not resuscitate; K59.00 Constipation, unspecified; R40.0 Somnolence; I70.203 Unspecified atherosclerosis of native arteries of extremities, bilateral legs; L29.9 Pruritus, unspecified; Z96.642 Presence of left artificial hip joint; Z88.2 Allergy status to sulfonamides; Z82.49 Family history of ischemic heart disease and other diseases of the circulatory system; I25.2 Old myocardial infarction; Z79.2 Long term (current) use of antibiotics; Z86.73 Personal history of transient ischemic attack (TIA), and cerebral infarction without residual deficits; Z86.711 Personal history of pulmonary embolism; Z87.440 Personal history of urinary (tract) infections; Z99.81 Dependence on supplemental oxygen; Z95.1 Presence of aortocoronary bypass graft; Z82.3 Family history of stroke; Z91.14 Patient's other noncompliance with medication regimen; Z86.718 Personal history of other venous thrombosis and embolism; Z79.01 Long term (current) use of anticoagulants; Z95.5 Presence of coronary angioplasty implant and graft
CPT/HCPCS: 36600; 70450; 71045; 71275; 73630; 74176; 76705; 80048; 80048 91; 80053; 81003; 82728; 82803; 82948; 83540; 83605; 83690; 83735; 83880; 83935; 84300; 84466; 84484; 85025; 85027; 85046; 85610; 85652; 85730; 86140; 86850; 86870; 86900; 86901; 86905; 86920; 87040; 87070; 87075; 87077; 87186; 87205; 87502; 87641; 87801; 93005; 93925; 94640; 94640 76; 94799; 97530 GO; 99202; 99281; 99285; C1751; C1894; J0290; J0295; J0696; J1650; J1815; J1940; J2270; J2543; J3475; J3480; J7030; J7040; J7050; P9016

== ENCOUNTER 2017-04-18 02:48 | Emergency (ER) | payer OTHER ==
[~2017-04-18] VITALS: Ht 188 cm; Wt 85.7 kg
[~2017-04-18 02:48] MED LIST changes: +BISACODYL5 MG PO; +CARVEDILOL6.25 MG PO; +CEFTRIAXONE2 G1 IV; +COREG12.5 M1 PO; +MORPHINE SULFAT15 M1 PO; +NICOTINE PATCH1 EAC2 TD; +NOVOLOG 10100 UNITS/ SC; +NYSTOP60 GM TP; +OXYCODONE HCL5 MG PO; +POLYETHYLENE GL17 GM PO; +TAMSULOSIN HCL0.4 MG PO
[2017-04-18 06:30] VITALS: BP 122/86
== END 2017-04-18 07:32 ==
LOC: EME → EDBD 02:48 → EME 07:32
DX: M86.9 Osteomyelitis, unspecified (principal); Z45.2 Encounter for adjustment and management of vascular access device
CPT/HCPCS: 71045; 99281; 99285